=== PATIENT | female | born 1925 | race Caucasian/White ===

== ENCOUNTER 2017-03-26 21:10 | Inpatient (IN) | payer OTHER, MEDICARE ==
[~2017-03-26] VITALS: Ht 168.9 cm; Wt 80.0 kg
[~2017-03-26 21:10] MED LIST: CITRACAL + D M1 EACH PO; COUMADIN5 M2 PO; DIGOXIN125 MCG PO; DILTIAZEM 24HR120 MG PO; FLUOXETINE HCL10 M2 PO; FOLIC ACID1 M1 PO; FUROSEMIDE40 M1 PO; GABAPENTIN300 M2 PO; JANTOVEN2.5 M1 PO; LASIX20 M1 PO; LEVOTHYROXINE50 MCG PO; LIPO-FLAVONOID1 EACH PO; METHOTREXATE2.5 M2 PO; METOPROLOL TAR100 M1 PO; OMEPRAZOLE40 M1 PO; PREDNISONE5 M1 PO; ULTRAM50 M1 PO; VITAMIN B-121000 MC3 PO; VITAMIN D31000 UNI1 PO
--- NOTE | 2017-03-26 21:18 | ED GENERAL ADULT ---
History of Present Illness General Chief Complaint: General Adult Stated Complaint: BIBA EXPOSE TO THE FLU AND HYPERTENSIOM Source: patient, EMS Exam Limitations: no limitations Vital Signs & Intake/Output Vital Signs & Intake/Output Vital Signs Date Time Temp Pulse Resp B/P B/P Pulse O2 O2 Flow FiO2 Mean Ox Delivery Rate 03/263 99.3 03/26 2320 99.3 158 20 148/90 96 Nasal 2.0L Cannula 03/267 101.9 03/265 95 Room Air 03/26 2116 101.9 140 20 152/96 94 Room Air ED Intake and Output 03/27 0000 03/26 1200 Intake Total Output Total Balance Patient 175 lb Weight Weight Reported by Patient Measurement Method Allergies Coded Allergies: ciprofloxacin (From CIPRO) (UNKNOWN 02/21/16) clarithromycin (From BIAXIN) (UNKNOWN - POSSIBLY NAUSEA PER PT DAUGHTER 02/21/16 ) duloxetine (From CYMBALTA) (UNKNOWN 02/21/16) metronidazole (From FLAGYL) (PER PT DAUGHTER - NEUROPATHY 02/21/16) pregabalin (From LYRICA) (UNKNOWN 02/21/16) Reconcile Medications Bioflav,Lemon/Vit Bcomp,C (Lipo-Flavonoid Plus Caplet) (Unknown Strength) TABLET 1 TAB PO DAILY SUPPLEMENT (Reported) Calcium Citrate/Vitamin D3 (Citracal + D Maximum Caplet) (Unknown Strength) TABLET 2 TAB PO DAILY SUPPLEMENT (Reported) Cholecalciferol (Vitamin D3) (Vitamin D3) 1,000 UNIT CAPSULE 1 CAP PO DAILY SUPPLEMENT (Reported) Cyanocobalamin (Vitamin B-12) 1,000 MCG TABLET 1 TAB PO DAILY SUPPLEMENT ( Reported) Digoxin 125 MCG TABLET 1 TAB PO EOD HEART RATE Diltiazem HCl (Diltiazem 24HR ER) 120 MG CAP.ER.24H 1 CAP PO QPM HEART ( Reported) Folic Acid 1 MG TABLET 1 TAB PO DAILY SUPPLEMENT (Reported) Furosemide (Lasix) 20 MG TABLET 1 TAB PO DAILY HEART FAILURE Gabapentin 300 MG CAPSULE 1 CAP PO QPM NEUROPATHY (Reported) Levothyroxine Sodium 50 MCG TABLET 1 TAB PO DAILY THYROID (Reported) Methotrexate 2.5 MG TABLET 3 TAB PO QTHURS ARTHRITIS (Reported) Metoprolol Tartrate 100 MG TABLET 1 TAB PO BID BP (Reported) Omeprazole 40 MG CAPSULE.DR 1 CAP PO DAILY PRN GI (Reported) Prednisone 5 MG TABLET 1 TAB PO DAILY ARTHRITIS (Reported) Tramadol HCl (Ultram) 50 MG TABLET 1 TAB PO QPM PAIN (Reported) Warfarin Sodium (Coumadin) 5 MG TABLET 1 TAB PO EOD BLOOD THINNER (Reported) Warfarin Sodium (Jantoven) 2.5 MG TABLET 1 TAB PO EOD BLOOD THINNER (Reported ) Triage Nurses Notes Reviewed? yes Onset: Gradual Duration: day(s): Timing: recent history Injury Environment: home Severity: moderate Modifying Factors: Improves With: rest. Associated Symptoms: headache HPI: 89 yo woman, h/o tia, presents with headache, cough, fever x 1 day. A family member had the flu with whom she had been in contact. She notes Past History Travel History Traveled to [place] past 21 day No Medical History Any Pertinent Medical History? see below for history Neurological: TIA EENT: NONE Cardiovascular: AFIB, CHF, hypertension, hyperlipidemia Respiratory: NONE Gastrointestinal: NONE Hepatic: NONE Renal: NONE Musculoskeletal: osteoarthritis Psychiatric: NONE Endocrine: NONE Blood Disorders: NONE Cancer(s): NONE PARASITOLOGIST/Reproductive: NONE History of MRSA: No History of VRE: No History of CDIFF: No Pneumonia Vaccine: 11/19/15 Influenza Vaccine: 11/19/15 Surgical History Surgical History: appendectomy, hysterectomy, bowel resection secondary to complicated diverticulitis Psychosocial History What is your primary language Icelandic Family History Hx Contributory? No Review of Systems Review of Systems Constitutional: Reports: no symptoms. EENTM: Reports: no symptoms. Respiratory: Reports: no symptoms. Cardiovascular: Reports: no symptoms. GI: Reports: no symptoms. Genitourinary: Reports: no symptoms. Musculoskeletal: Reports: no symptoms. Skin: Reports: no symptoms. Neurological/Psychological: Reports: no symptoms. Hematologic/Endocrine: Reports: no symptoms. Immunologic/Allergic: Reports: no symptoms. All Other Systems: Reviewed and Negative Physical Exam Physical Exam General Appearance: lethargic Head: atraumatic, normal appearance Eyes: Bilateral: normal appearance. Ears, Nose, Throat: dry mucosa Neck: normal inspection, supple, full range of motion Respiratory: normal breath sounds, chest non-tender, no respiratory distress, quiet respiration, lungs clear Cardiovascular: regular rate/rhythm Gastrointestinal: normal bowel sounds, soft, non-tender, no organomegaly Back: normal inspection, normal range of motion Extremities: normal inspection, normal capillary refill, normal range of motion, no edema Neurologic/Psych: no motor/sensory deficits, awake, alert, oriented x 3 Skin: intact, normal color, warm/dry Core Measures ACS in differential dx? No CVA/TIA Diagnosis: No Sepsis Present: No Sepsis Focused Exam Completed? No Progress Differential Diagnoses I considered the following diagnoses in my evaluation of the patient: influenza, pneumonia, uti vs other.... pt also with afib with RVR Plan of Care: Orders Procedure Date/time Status Nothing by Mouth 03/27 B Active Patient Data 03/26 2332 Active Saline Lock 03/26 2312 Active Misc Message 03/26 2312 Active ED Holding Orders 03/26 2312 Active Admit to inpatient 03/26 2312 Active Vital Signs 03/26 2312 Active Code Status 03/26 2312 Active Add-on Test (ER Only) 03/26 225 Active URINALYSIS 03/26 2233 Complete Add-on Test (ER Only) 03/26 2146 Active PROTHROMBIN TIME 03/26 2130 Complete DIGOXIN 03/26 2130 Complete RAPID VIRAL INFLUENZA A 03/26 2118 Complete TROPONIN LEVEL 03/26 2118 Complete LIPASE 03/26 2118 Complete HEPATIC FUNCTION PANEL 03/26 2118 Complete CBC WITHOUT DIFFERENTIAL 03/26 2118 Complete BASIC METABOLIC PANEL 03/26 2118 Complete AMYLASE 03/26 2118 Complete EKG 03/26 2118 Active Current Medications Sig/Jesusita Start time Last Medication Dose Stop Time Status Admin Diltiazem HCl 125 MG Q8H 03/26 2345 AC 03/26 (Cardizem DRIP) 2356 Dextrose/Water 100 ML (D5W) Laboratory Tests 03/26/172246: Urine Color YEL, Urine Clarity CLEAR, Urine pH 6.0, Ur Specific Stringer 1.020, Urine Protein NEG, Urine Ketones NEG, Urine Nitrite NEG, Urine Bilirubin NEG, Urine Urobilinogen 0.2, Ur Leukocyte Esterase NEG, Ur Microscopic SEDIMENT EXAMINED, Urine RBC RARE, Urine Bacteria RARE H, Urine Hemoglobin SMALL H, Urine Glucose NEG 03/26/172130: Anion Gap 15, Estimated GFR > 60, BUN/Creatinine Ratio 21.3, Glucose 125 H, Calcium 9.5, Total Bilirubin 0.8, Direct Bilirubin 0.3, AST 28, ALT 37, Alkaline Phosphatase 74, Troponin I 0.02, Total Protein 6.8, Albumin 4.6, Amylase 78, Lipase 82, PT 19.7 H, INR 1.89 H, CBC w Diff MAN DIFF ORDERED, RBC 4.42, MCV 98.1, MCH 32.4 H, RDW 14.8 H, MPV 8.1, Gran % 91.0 H, Lymphocytes % 4.5 L, Monocytes % 3.8, Eosinophils % 0.6, Basophils % 0.1, Absolute Granulocytes 11.8 H, Segmented Neutrophils 90 H, Band Neutrophils 4, Absolute Lymphocytes 0.6 L, Lymphocytes 3 L, Monocytes 2, Absolute Monocytes 0.5, Eosinophils 1, Absolute Eosinophils 0.1, Absolute Basophils 0, Nucleated RBCs 1 H, Platelet Estimate ADEQUATE, Anisocytosis 1+, Macrocytic Cells 1+, Stomatocytes 1+, PUBS MCHC 33.0, Digoxin 1.0 Microbiology 03/26 2130 NASOPHARYN: Influenza Virus A & B Rapid Smear - COMP Diagnostic Imaging: Viewed by Me: CT Scan. Discussed w/RAD: CT Scan. Radiology Impression: PATIENT: JENELLE CHRISTIAN PRESENT AGE : 89 PATIENT ACCOUNT NO: [id number] : [birth year] LOCATION: [facility] ORDERING PHYSICIAN: Dipak Del Angel MD SERVICE DATE: 03/26/17 EXAM TYPE: CAT - CT HEAD WO IV CONTRAST EXAMINATION: CT HEAD WITHOUT CONTRAST CLINICAL INFORMATION: Headache with history of TIA. COMPARISON: CT head 02/21/2016. TECHNIQUE: Contiguous axial imaging was performed from the skull base to vertex without intravenous administration of contrast. DLP: 618.75 mGy-cm FINDINGS: Generalized parenchymal atrophy of the brain with proportion dilation of the ventricles, sulci, and basilar cisterns. There are intracranial atherosclerotic calcifications with scattered periventricular and subcortical white matter hypodensity which are nonspecific but most frequently associated with sequela of chronic microvascular ischemia. These changes appear similar to prior examination. There is no evidence of acute intracranial hemorrhage or territorial infarction. No abnormal mass effect or midline shift is seen. Fernández to white matter differentiation is well preserved. No extra-axial fluid collections are identified. The osseous structures and soft tissues are normal. The mastoid air cells and visualized portions of the paranasal sinuses are well aerated. IMPRESSION: No acute intracranial pathology. DICTATED BY: Jeremias Hoyos MD DATE/TIME DICTATED:01/21/18 / 2232 MANAGER LOAN:KB DATE/TIME TRANSCRIBED:03/26/172231 CONFIDENTIAL, DO NOT COPY WITHOUT APPROPRIATE AUTHORIZATION. <Electronically signed in Other Vendor System> SIGNED BY: Jeremias Hoyos MD 03/26/172236 CXR Impression: no acute abnormality, no infiltrates, normal size heart, normal mediastinum, PATIENT: JENELLE CHRISTIAN PRESENT AGE: 89 PATIENT ACCOUNT NO: [id number] : [birth year] LOCATION: [facility] ORDERING PHYSICIAN: Dipak Del Angel MD SERVICE DATE: 03/26/17 EXAM TYPE: RAD - XRY- CHEST XRAY, TWO VIEWS EXAMINATION: XR CHEST CLINICAL INFORMATION: Dyspnea and fever. COMPARISON: Chest radiograph 02/21/2016. TECHNIQUE: 2 AP radiographs of the chest and a single lateral radiograph provided for evaluation. FINDINGS: The lungs are clear. No focal consolidation. No pleural effusion. Stable left-sided dual-lead ICD with lead in the right atrium and right ventricle. Cardiac silhouette is unchanged. There is minimal prominence of pulmonary vasculature. Changes without acute osseous findings IMPRESSION: 1. Mild prominence of the pulmonary vasculature which may be within normal limits given AP technique or minimal volume overload. 2. No focal consolidation or evidence of pneumonia. DICTATED BY: Jeremias Hoyos MD DATE/TIME DICTATED:03/26/172211 MANAGER LOAN:KB DATE/TIME TRANSCRIBED:03/26/172211 CONFIDENTIAL, DO NOT COPY WITHOUT APPROPRIATE AUTHORIZATION. <Electronically signed in Other Vendor System> SIGNED BY: Jeremias Hoyos MD 03/26/172219 Initial ED EKG: afib with rapid ventricular response Departure Departure Disposition: STILL A PATIENT Condition: Stable Clinical Impression Primary Impression: Atrial fibrillation with rapid ventricular response Secondary Impressions: SIRS (systemic inflammatory response syndrome), Viral syndrome Referrals: Mike Vences MD (PCP/Family) Departure Forms: Customer Survey General Discharge Information Admission Note Spoke With: Cyndi Moses MD Documentation of Exam: Documentation of any treatments & extenuating circumstances including Concerns Regarding Discharge (functional status, medication knowledge or non-compliance, living conditions, etc.) that warrant an admission rather than observation: pt with fever, most consistent with viral syndrome... i doubt bacterial process at this time (wbc count benign, u/a neg, cxr neg). pt also with afib with RVR, merits dilt gtt, further management... likely etiology is the fever. INR 1.89 on coumadin... will defer heparin gtt. Critical Care Note Critical Care Note Critical Care Time: 30-74 min Comments: dilt gtt
[2017-03-26 21:52] LABS: ABSOLUTE BASOPHIL COUNT 0 /CUMM (0.0-0.2); ABSOLUTE EOSINOPHIL COUNT 0.1 /CUMM (0.0-0.7); ABSOLUTE GRANULOCYTE CT 11.8 /CUMM (1.4-6.5); ABSOLUTE LYMPH COUNT 0.6 /CUMM (1.2-3.4); ABSOLUTE MONOCYTE COUNT 0.5 /CUMM (0.10-0.60); BASOPHIL % 0.1 % (0.0-2.0); EOSINOPHIL % 0.6 % (0-5); HEMATOCRIT 43.4 % (37-47); MEAN CORPUSCULAR HGB 32.4 PG (27.0-31.0); MEAN CORPUSCULAR VOLUME 98.1 FL (81.0-99.0); MEAN PLATELET VOLUME 8.1 FL (7.4-10.4); PLATELET COUNT 212 /CUMM (130-400); RBC DISTRIBUTION WIDTH 14.8 % (11.5-14.5); RED BLOOD CELL CT 4.42 /CUMM (4.20-5.40)
[2017-03-26 22:07] LABS: PT 19.7 SEC (9.4-12.5)
--- NOTE | 2017-03-26 22:20 | RADIOLOGY REPORT ---
EXAMINATION: XR CHEST CLINICAL INFORMATION: Dyspnea and fever. COMPARISON: Chest radiograph 02/21/2016. TECHNIQUE: 2 AP radiographs of the chest and a single lateral radiograph provided for evaluation. FINDINGS: The lungs are clear. No focal consolidation. No pleural effusion. Stable left-sided dual-lead ICD with lead in the right atrium and right ventricle. Cardiac silhouette is unchanged. There is minimal prominence of pulmonary vasculature. Changes without acute osseous findings IMPRESSION: 1. Mild prominence of the pulmonary vasculature which may be within normal limits given AP technique or minimal volume overload. 2. No focal consolidation or evidence of pneumonia.
--- NOTE | 2017-03-26 22:37 | CT SCAN REPORT ---
EXAMINATION: CT HEAD WITHOUT CONTRAST CLINICAL INFORMATION: Headache with history of TIA. COMPARISON: CT head 02/21/2016. TECHNIQUE: Contiguous axial imaging was performed from the skull base to vertex without intravenous administration of contrast. DLP: 618.75 mGy-cm FINDINGS: Generalized parenchymal atrophy of the brain with proportion dilation of the ventricles, sulci, and basilar cisterns. There are intracranial atherosclerotic calcifications with scattered periventricular and subcortical white matter hypodensity which are nonspecific but most frequently associated with sequela of chronic microvascular ischemia. These changes appear similar to prior examination. There is no evidence of acute intracranial hemorrhage or territorial infarction. No abnormal mass effect or midline shift is seen. Fernández to white matter differentiation is well preserved. No extra-axial fluid collections are identified. The osseous structures and soft tissues are normal. The mastoid air cells and visualized portions of the paranasal sinuses are well aerated. IMPRESSION: No acute intracranial pathology.
--- NOTE | 2017-03-27 00:44 | History & Physical ---
Sonu PABON,Rajeev 03/27/17 0044: General Information and HPI MD Statement: I have seen and personally examined JENELLE CHRISTIAN and documented this H&P. The patient is a 89 year old F who presented with a patient stated chief complaint of [headache and malaise]. Source of Information: patient, family, old records Exam Limitations: dementia, poor historian History of Present Illness: This is an 89-year-old female with past medical history significant for A. fib, demetia, hypothyroidism, RA, CHF, neuropathy, diverticulosis, pacemaker implantation, who was brought in by daughter for altered mental status, malaise, and headache. History is obtained from daughter who is her primary caregiver. Daughter was diagnosed with influenza last Monday. Subsequently, she noted that her mother developed a persistent cough. Daughter noted a continued decline until this weekend when her cough worsened and she gave her tessalon perles and Robitussin this AM. Subsequently, throughout the day she noted her mother more altered, and hypertensive. This evening pt c/o feeling dizzy and about to pass out and it seemed reminescent to her admission in 2015 for TIA so daughter called ambulance. Prior to ambulance arrival daughter notes two episodes of "vomiting" with some spit up. Pt does endorse headache, some nausea , no diarrhea. Daughter endorses frequency of urination but states that pt is incontinent of urine when she coughs. No diarrhea. Pt does c/o myalgias and knee pain. In ED pt was febrile to 101.9. Daughter stated that her mother seemed to feel warm through the week but she never measured a temperature. At baseline pt ambulates with a cane. She follows with Dr. Dominguez for neurology and per daughter was scheduled for some work up of her dementia. Daughter administers medications and states that all meds are administered as prescribed. Allergies/Medications Allergies: Coded Allergies: ciprofloxacin (From CIPRO) (UNKNOWN 02/21/16) clarithromycin (From BIAXIN) (UNKNOWN - POSSIBLY NAUSEA PER PT DAUGHTER 02/21/16 ) duloxetine (From CYMBALTA) (UNKNOWN 02/21/16) metronidazole (From FLAGYL) (PER PT DAUGHTER - NEUROPATHY 02/21/16) pregabalin (From LYRICA) (UNKNOWN 02/21/16) Home Med list Bioflav,Lemon/Vit Bcomp,C (Lipo-Flavonoid Plus Caplet) (Unknown Strength) TABLET 1 TAB PO DAILY SUPPLEMENT (Reported) Calcium Citrate/Vitamin D3 (Citracal + D Maximum Caplet) (Unknown Strength) TABLET 2 TAB PO DAILY SUPPLEMENT (Reported) Cholecalciferol (Vitamin D3) (Vitamin D3) 1,000 UNIT CAPSULE 1 CAP PO DAILY SUPPLEMENT (Reported) Cyanocobalamin (Vitamin B-12) 1,000 MCG TABLET 1 TAB PO DAILY SUPPLEMENT ( Reported) Digoxin 125 MCG TABLET 1 TAB PO EOD HEART RATE Diltiazem HCl (Diltiazem 24HR ER) 120 MG CAP.ER.24H 1 CAP PO QPM HEART ( Reported) Folic Acid 1 MG TABLET 1 TAB PO DAILY SUPPLEMENT (Reported) Furosemide (Lasix) 20 MG TABLET 1 TAB PO DAILY HEART FAILURE Gabapentin 300 MG CAPSULE 1 CAP PO QPM NEUROPATHY (Reported) Levothyroxine Sodium 50 MCG TABLET 1 TAB PO DAILY THYROID (Reported) Methotrexate 2.5 MG TABLET 3 TAB PO QTHURS ARTHRITIS (Reported) Metoprolol Tartrate 100 MG TABLET 1 TAB PO BID BP (Reported) Omeprazole 40 MG CAPSULE.DR 1 CAP PO DAILY PRN GI (Reported) Prednisone 5 MG TABLET 1 TAB PO DAILY ARTHRITIS (Reported) Tramadol HCl (Ultram) 50 MG TABLET 1 TAB PO QPM PAIN (Reported) Warfarin Sodium (Coumadin) 5 MG TABLET 1 TAB PO EOD BLOOD THINNER (Reported) Warfarin Sodium (Jantoven) 2.5 MG TABLET 1 TAB PO EOD BLOOD THINNER (Reported ) Compliance With Home Meds: GOOD Past History Travel History Traveled to [place] past 21 day No Medical History Neurological: TIA EENT: NONE Cardiovascular: AFIB, CHF, hypertension, hyperlipidemia, PACEMAKER Respiratory: NONE Gastrointestinal: NONE Hepatic: NONE Renal: NONE Musculoskeletal: osteoarthritis Psychiatric: NONE Endocrine: NONE Blood Disorders: NONE Cancer(s): NONE REAL ESTATE INVESTMENT ANALYST/Reproductive: NONE History of MRSA: No History of VRE: No History of CDIFF: No Pneumonia Vaccine: 11/19/15 Influenza Vaccine: 11/19/15 Surgical History Surgical History: appendectomy, hysterectomy, bowel resection secondary to complicated diverticulitis Review of Systems Review of Systems Constitutional: Reports: see HPI. Exam & Diagnostic Data Last 24 Hrs of Vital Signs/I&O Vital Signs Date Time Temp Pulse Resp B/P B/P Pulse O2 O2 Flow FiO2 Mean Ox Delivery Rate 03/27 0250 99 Nasal 2.0L Cannula 03/27 0200 98.3 102 20 152/76 99 Nasal 2.0L Cannula 03/27 0058 99.0 96 20 148/67 95 Nasal 2.0L Cannula 03/27 0016 112 20 126/60 96 Nasal 2.0L Cannula 03/27 0015 135 20 141/82 96 Nasal 2.0L Cannula 03/27 0014 99.3 110 20 153/76 03/27 0011 110 20 153/76 95 Nasal 2.0L Cannula 03/26 2323 99.3 03/26 2321 99.3 158 20 148/90 96 Nasal 2.0L Cannula 03/26 2247 101.9 03/26 2135 95 Room Air 03/26 2117 101.9 140 20 152/96 94 Room Air Intake & Output 03/27 0800 03/27 0000 03/26 1600 Intake Total Output Total Balance Patient 79.379 kg Weight Weight Reported by Patient Measurement Method Physical Exam General Appearance Alert, Cooperative, No Acute Distress Skin No Significant Lesion Skin Temp/Moisture Exam: Warm/Dry Sepsis Skin Exam (color): Normal for Ethnicity HEENT Atraumatic, PERRLA, EOMI, membranes dry Neck Supple, No LAD Cardiovascular irregularly irregular. tachycardic Lungs CTAB Abdomen Soft, No Tenderness Extremities No Edema Last 24 Hrs of Labs/Jamar: Laboratory Tests 03/26/172246: Urine Color YEL, Urine Clarity CLEAR, Urine pH 6.0, Ur Specific Holland 1.020, Urine Protein NEG, Urine Ketones NEG, Urine Nitrite NEG, Urine Bilirubin NEG, Urine Urobilinogen 0.2, Ur Leukocyte Esterase NEG, Ur Microscopic SEDIMENT EXAMINED, Urine RBC RARE, Urine Bacteria RARE H, Urine Hemoglobin SMALL H, Urine Glucose NEG 03/26/172130: Anion Gap 15, Estimated GFR > 60, BUN/Creatinine Ratio 21.3, Glucose 125 H, Calcium 9.5, Total Bilirubin 0.8, Direct Bilirubin 0.3, AST 28, ALT 37, Alkaline Phosphatase 74, Troponin I 0.02, Total Protein 6.8, Albumin 4.6, Amylase 78, Lipase 82, TSH 0.763, Free T4 1.19, PT 19.7 H, INR 1.89 H, CBC w Diff MAN DIFF ORDERED, RBC 4.42, MCV 98.1, MCH 32.4 H, RDW 14.8 H, MPV 8.1, Gran % 91.0 H, Lymphocytes % 4.5 L, Monocytes % 3.8, Eosinophils % 0.6, Basophils % 0.1, Absolute Granulocytes 11.8 H, Segmented Neutrophils 90 H, Band Neutrophils 4, Absolute Lymphocytes 0.6 L, Lymphocytes 3 L, Monocytes 2, Absolute Monocytes 0.5, Eosinophils 1, Absolute Eosinophils 0.1, Absolute Basophils 0, Nucleated RBCs 1 H, Platelet Estimate ADEQUATE, Anisocytosis 1+, Macrocytic Cells 1+, Stomatocytes 1+, PUBS MCHC 33.0, Digoxin 1.0 Microbiology 03/26 2130 NASOPHARYN: Influenza Virus A & B Rapid Smear - COMP Assessment/Plan Assessment: ASSESSMENT: This is a 89-year-old female with past medical history significant for A. fib, demetia, hypothyroidism, RA, CHF, neuropathy, diverticulosis, pacemaker implantation, who was brought in by daughter for altered mental status , malaise, and headache. She is found to be febrile and in atrial fibrillation with rapid ventricular response. Given her recent sick contact diagnosed with influenza, and patient's complaints of fever, myalgia and cough there is concern for influenza in this patient despite a negative flu swab. Likely a combination of viral illness in addition to her Robitussin precipitated an episode of RVR. PLAN: SIRS+: Patient certainly meets criteria for SIRS given fever, leukocytosis, and tachycardia. Though she tested negative for influenza, still suspect she has disease given sick contact, her immunocompromised state on MTX, the duration of her illness and symptoms. Questionable sepsis 2/2 influenza. CXR w/o consolidation. Negative UA. CT head negative given concern for her AMS. Pt is on chronic prednisone 5mg daily, unsure how it may influence her leukocytosis. * Bcx * Ucx * LRC * Tamiflu * Monitor lactic acid * IVF * Holding home lasix. * Trend leukocytosis Afib RVR: HR 158. Pt is on dig and Diltiazem 120 at home. She has hx of hypothyroid. * Check TFT * Check Dig lvl * Con't Digoxin (dosed EOD) * Cardizem drip * Will give home dose of PO Diltiazem and attempt to wean down drip * Cardiology Consult * Con't Coumadin * Monitor INR * Trops/ekg RA: Pt c/o severe knee pain bilat. Could be RA, or myalgias but would rule out septic knee in pt with leukocytosis and fever. * Knee xrys * She gets 3 tab of MTX on . * Con't folic acid * Con't prednisone 5mg * Holding gabapentin for AMS. Consider re-starting in AM. Hypothyroid: * Con't Levothyroxine * Check TFT FC Reg diet Chem ppx As Ranked By This Provider Problem List: 1. Viral syndrome 2. SIRS (systemic inflammatory response syndrome) 3. Atrial fibrillation with rapid ventricular response Core Measures/Misc (11/20) Acute Coronary Syndrome ACS Diagnosis: No Congestive Heart Failure Congestive Heart Failure Diagnosis No Cerebrovascular Accident CVA/TIA Diagnosis: No VTE (View Protocol) VTE Risk Factors Age>40 No Mechanical VTE Prophylaxis d/t N/A MechProphylax Ordered No VTE Pharm Prophylaxis d/t NA PharmProphylax ordered Sepsis (View protocol) Sepsis Present: Yes Cyndi Moses 03/27/17 0549: Attending MD Review Statement Attending Statement Attending MD Statement: examined this patient, discuss w/resident/PA/APPLICATIONS SALES REPRESENTATIVE, agreed w/resident/PA/APPLICATIONS SALES REPRESENTATIVE, reviewed EMR data (avail), reviewed images, amended to note Attending Assessment/Plan: CC: Flulike symptoms PMH: A. fib, S/P pacemaker, hypothyroidism, rheumatoid arthritis, heart failure, neuropathy Patient is a poor historian, brought in ER through EMS. History was obtained from patient's daughter who suggested that since last 1 week patient has been more lethargic, having fever and flulike symptoms at home but today she appeared more DC having headache, not being herself. Her daughter was worried about the strokelike symptoms so she came to ER. Upon arrival in ER patient was found to have heart rate of 144 with A. fib. Fever of 109, blood pressure stable, saturating 96% on 2 L. Oriented 1, complains of myalgias, knee pain. Decreased air entry bilaterally, wheezing present, no leg edema, no JVD. Patient on to have significant leukocytosis, troponin negative chest x-ray questionable for volume overload no evidence of pneumonia. Even her symptoms, immunocompromised state and her daughter having flu, we will continue her on Tamiflu empirically even though her rapid influenza negative. A. fib is precipitated by viral infection, continue Cardizem drip, continue home doses of warfarin + Suspected influenza + A. fib with RVR + History of A. fib, S/P pacemaker, hypothyroidism, rheumatoid arthritis, heart failure, neuropathy - Admit to telemetry - Serial troponin and EKGs - Trend lactate - Continue Cardizem drip - Continue Tamiflu empirically - Cardiology consult in a.m. - Gentle hydration for normal saline for 1 L - Continue rest of her home medications - significant knee pain, tender to touch, no redness or effusion or inflammation : Bilateral knee x-rays
[2017-03-27 02:00] VITALS: BP 152/76
--- NOTE | 2017-03-27 05:51 | Admission Certification ---
Admission Certification Certification Statement - As attending physician, I certify that at the time of - admission, based on clinical presentation, severity of - symptoms, need for further diagnostic testing and - therapeutic interventions, and risk of adverse outcomes - without in-hospital treatment, in my clinical assessment, - this patient requires an acute hospital stay for a minimum - of two nights or longer. I have also considered psychsocial - factors such as support system, advanced age, financial - issues, cognitive issues, and failed out-patient treatments, - past re-admission history, safety of patient, and lack of - compliance as applicable. Specific rationale supporting this admission is: A. fib with RVR, suspected influenza
[2017-03-27 06:00] VITALS: BP 148/70
[2017-03-27 07:14] VITALS: BP 152/76
[2017-03-27 08:16] LABS: PT 19.2 SEC (9.4-12.5)
[2017-03-27 08:25] LABS: ABSOLUTE BASOPHIL COUNT 0 /CUMM (0.0-0.2); ABSOLUTE EOSINOPHIL COUNT 0 /CUMM (0.0-0.7); ABSOLUTE GRANULOCYTE CT 11.1 /CUMM (1.4-6.5); ABSOLUTE LYMPH COUNT 0.6 /CUMM (1.2-3.4); ABSOLUTE MONOCYTE COUNT 0.9 /CUMM (0.10-0.60); BASOPHIL % 0 % (0.0-2.0); EOSINOPHIL % 0.3 % (0-5); HEMATOCRIT 39.8 % (37-47); MEAN CORPUSCULAR HGB 33.2 PG (27.0-31.0); MEAN CORPUSCULAR VOLUME 97.5 FL (81.0-99.0); MEAN PLATELET VOLUME 8.5 FL (7.4-10.4); PLATELET COUNT 170 /CUMM (130-400); RBC DISTRIBUTION WIDTH 14.8 % (11.5-14.5); RED BLOOD CELL CT 4.09 /CUMM (4.20-5.40); WHITE BLOOD CELL COUNT 12.6 /CUMM (4.8-10.8)
--- NOTE | 2017-03-27 09:50 | Event Note ---
Event Note Event Note: 89 yo F with pmh of HFpEF, NOCAD, PAF on Coumadin, PPM, hypothyroidism, CVA, neuropathy, diverticulosis, was admitted with complaints of fever, nausea, cough , and was found to have atrial fibrillation with rapid ventricular response. She is currently admitted in the telemetry unit for further monitoring of her heart rate and is currently on IV Cardizem drip at 15mg/hr, she received small dose (5 mg) of beta mayra yesterday, and her digoxin level is therapeutic at 1. * Continue monitoring in telemetry, for rate and rhythm * Cardiology was consulted, awaiting recommendations * In the meantime, continue with IV Cardizem drip, will try to titrate it down according to response with heart rate and blood pressure * Will follow cardiology's recs regarding resuming metoprolol at home doses * Destruction is currently in therapeutic level, and has been ordered for every other day, restarting tomorrow. * We are repeating the rapid flu test again, with strong suspicion of influenza, and continuing Tamiflu for the time being * We'll also follow-up on the bilateral knee x-ray that has been ordered, as she was still complaining of b/l knee pain, no h/o falls though
--- NOTE | 2017-03-27 12:45 | Cons- Cardiology ---
General Information and HPI Consulting Request Date of Consult: 03/27/17 Requested By: Estela Nunez MD Reason for Consult: Atrial fibrillation Source of Information: patient, family, old records History of Present Illness: This is an 89-year-old female with a past medical history of now persistent atrial fibrillation on Coumadin, heart failure with preserved ejection fraction, permanent pacemaker, dementia, prior CVA, and hypothyroidism who presented to the hospital with cough along with decreased mental status and worsening fatigue. Patient is a somewhat limited historian and some of the HPI was obtained from her family and the medical record. Apparently her daughter was recently diagnosed with influenza. Patient was complaining of some headache without complaints of obvious chest pain or palpitations. She was complaining of myalgias including significant knee pain. She was noted to be febrile. She was also found to be tachycardic and initiated on intravenous Cardizem. No reported bleeding episodes. Allergies/Medications Allergies: Coded Allergies: ciprofloxacin (From CIPRO) (UNKNOWN 02/21/16) clarithromycin (From BIAXIN) (UNKNOWN - POSSIBLY NAUSEA PER PT DAUGHTER 02/21/16 ) duloxetine (From CYMBALTA) (UNKNOWN 02/21/16) metronidazole (From FLAGYL) (PER PT DAUGHTER - NEUROPATHY 02/21/16) pregabalin (From LYRICA) (UNKNOWN 02/21/16) Home Med List: Bioflav,Lemon/Vit Bcomp,C (Lipo-Flavonoid Plus Caplet) (Unknown Strength) TABLET 1 TAB PO DAILY SUPPLEMENT (Reported) Calcium Citrate/Vitamin D3 (Citracal + D Maximum Caplet) (Unknown Strength) TABLET 2 TAB PO DAILY SUPPLEMENT (Reported) Cholecalciferol (Vitamin D3) (Vitamin D3) 1,000 UNIT CAPSULE 1 CAP PO DAILY SUPPLEMENT (Reported) Cyanocobalamin (Vitamin B-12) 1,000 MCG TABLET 1 TAB PO DAILY SUPPLEMENT ( Reported) Digoxin 125 MCG TABLET 1 TAB PO EOD HEART RATE Diltiazem HCl (Diltiazem 24HR ER) 120 MG CAP.ER.24H 1 CAP PO QPM HEART ( Reported) Folic Acid 1 MG TABLET 1 TAB PO DAILY SUPPLEMENT (Reported) Furosemide (Lasix) 20 MG TABLET 1 TAB PO DAILY HEART FAILURE Gabapentin 300 MG CAPSULE 1 CAP PO QPM NEUROPATHY (Reported) Levothyroxine Sodium 50 MCG TABLET 1 TAB PO DAILY THYROID (Reported) Methotrexate 2.5 MG TABLET 3 TAB PO QTHURS ARTHRITIS (Reported) Metoprolol Tartrate 100 MG TABLET 1 TAB PO BID BP (Reported) Omeprazole 40 MG CAPSULE.DR 1 CAP PO DAILY PRN GI (Reported) Prednisone 5 MG TABLET 1 TAB PO DAILY ARTHRITIS (Reported) Tramadol HCl (Ultram) 50 MG TABLET 1 TAB PO QPM PAIN (Reported) Warfarin Sodium (Coumadin) 5 MG TABLET 1 TAB PO EOD BLOOD THINNER (Reported) Warfarin Sodium (Jantoven) 2.5 MG TABLET 1 TAB PO EOD BLOOD THINNER (Reported ) Current Medications: Current Medications Sig/Jesusita Start time Last Medication Dose Route Stop Time Status Admin Acetaminophen 650 MG Q6P PRN 03/27 0200 AC PO Acetaminophen 1,000 MG ONCE ONE 03/26 2245 DC 03/26 N/A 1 UNIT IV 03/26 2259 2247 Acetaminophen 0 .STK-MED ONE 03/26 2238 DC IV Digoxin 0.125 MG TuThSa@1700 03/28 1700 AC PO Diltiazem HCl 120 MG QPM 03/27 2200 CAN PO Diltiazem HCl 30 MG STAT STA 03/26 2354 DC PO 03/26 2355 Diltiazem HCl 125 MG Q8H 03/26 2345 AC 03/27 Dextrose/Water 100 ML IV 0847 Diltiazem HCl 125 MG Q12H 03/26 2300 DC 03/26 Sodium Chloride 100 ML IV 2322 Gabapentin 300 MG QPM 03/27 2200 AC PO Ibuprofen 600 MG Q6P PRN 03/27 0200 AC PO Levothyroxine Sodium 0.05 MG DAILY AC 03/27 0700 AC 03/27 PO 0624 Metoprolol Tartrate 0 .STK-MED ONE 03/27 0003 DC IV Metoprolol Tartrate 5 MG ONCE ONE 03/26 2345 DC 03/27 IV 03/26 2346 0014 Morphine Sulfate 2 MG Q4P PRN 03/27 0200 AC IV Omeprazole 40 MG DAILY AC 03/27 0700 AC 03/27 PO 0624 Oseltamivir Phosphate 75 MG BID 03/27 0245 AC 03/27 PO 03/31 0244 1123 Potassium Chloride 40 MEQ ONCE ONE 03/27 1130 DC 03/27 PO 03/27 1131 1128 Prednisone 5 MG DAILY 03/27 1000 AC 03/27 PO 1123 Sodium Chloride 1,000 ML Q13H 03/27 0215 AC 03/27 IV 03/27 1514 0300 Warfarin Sodium 5 MG COUMADIN 1700 ONE 03/27 1700 AC PO 03/27 1701 Warfarin Sodium 2.5 MG ONCE ONE 03/27 0245 DC 03/27 PO 03/27 0246 0402 Review of Systems Review of Systems: Somewhat limited as the patient is a limited historian. 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 Home Services at Home: Home Health Aide Smoking Status: Never Smoked Exam & Diagnostic Data Vital Signs and I&O Vital Signs Date Time Temp Pulse Resp B/P B/P Pulse O2 O2 Flow FiO2 Mean Ox Delivery Rate 03/27 0800 Nasal 2.0L Cannula 03/27 0714 98.3 102 20 152/76 94 03/27 0600 98.5 106 20 148/70 94 Nasal Cannula 03/27 0250 99 Nasal 2.0L Cannula 03/27 0200 98.3 102 20 152/76 99 Nasal 2.0L Cannula 03/27 0058 99.0 96 20 148/67 95 Nasal 2.0L Cannula 03/27 0016 112 20 126/60 96 Nasal 2.0L Cannula 03/27 0015 135 20 141/82 96 Nasal 2.0L Cannula 03/27 0014 99.3 110 20 153/76 03/27 0011 110 20 153/76 95 Nasal 2.0L Cannula 03/26 2323 99.3 03/26 232 99.3 158 20 148/90 96 Nasal 2.0L Cannula 03/267 101.9 03/265 95 Room Air 03/26 2116 101.9 140 20 152/96 94 Room Air Intake & Output 03/27 1600 03/27 0800 03/27 0000 03/26 1600 03/26 0800 03/26 0000 Intake Total 320 Output Total Balance 320 Intake, IV 300 Intake, Oral 20 Patient 175 lb Weight Weight Reported by Patient Measurement Method Physical Exam: General: no apparent distress. Eyes: No obvious scleral icterus. HEENT: No jugular venous distention or abnormal jugular venous pulsations. Cardiovascular: Normal intensity S1/S2. Irregular , pacemaker noted Respiratory: No rales or rhonchi Abdomen: Soft, nontender with no guarding or rebound tenderness. Musculoskeletal: No clubbing or cyanosis noted; trace lower extremity edema Skin: Warm Neurologic: No gross focal deficits noted. Lymph: No gross lymphadenopathy. Labs/Jamar Results: Laboratory Tests 03/27 03/27 03/27 0736 0615 0615 Chemistry Sodium (137 - 145 mmol/L) 141 Cancelled Potassium (3.5 - 5.1 mmol/L) 3.4 L Cancelled Chloride (98 - 107 mmol/L) 99 Cancelled Carbon Dioxide (22 - 30 mmol/L) 26 Cancelled Anion Gap (5 - 16) 16 Cancelled BUN (7 - 17 mg/dL) 15 Cancelled Creatinine (0.5 - 1.0 mg/dL) 0.8 Cancelled Estimated GFR (>60 ml/min) > 60 BUN/Creatinine Ratio (7 - 25 %) 18.8 Cancelled Lactic Acid (0.7 - 2.1 mmol/L) 2.7 H Magnesium (1.6 - 2.3 mg/dL) 1.3 L Troponin I (< 0.11 ng/ml) 0.05 Coagulation PT (9.4 - 12.5 SEC) 19.2 H INR (0.90 - 1.19) 1.84 H Hematology CBC w Diff MAN DIFF ORDERED WBC (4.8 - 10.8 /CUMM) 12.6 H RBC (4.20 - 5.40 /CUMM) 4.09 L Hgb (12.0 - 16.0 G/DL) 13.6 Hct (37 - 47 %) 39.8 MCV (81.0 - 99.0 FL) 97.5 MCH (27.0 - 31.0 PG) 33.2 H RDW (11.5 - 14.5 %) 14.8 H Plt Count (130 - 400 /CUMM) 170 MPV (7.4 - 10.4 FL) 8.5 Gran % (42.2 - 75.2 %) 88.0 H Lymphocytes % (20.5 - 51.1 %) 4.4 L Monocytes % (1.7 - 9.3 %) 7.3 Eosinophils % (0 - 5 %) 0.3 Basophils % (0.0 - 2.0 %) 0 Absolute Granulocytes (1.4 - 6.5 /CUMM) 11.1 H Absolute Lymphocytes (1.2 - 3.4 /CUMM) 0.6 L Absolute Monocytes (0.10 - 0.60 /CUMM) 0.9 H Absolute Eosinophils (0.0 - 0.7 /CUMM) 0 Absolute Basophils (0.0 - 0.2 /CUMM) 0 Platelet Estimate (ADEQUATE) VERIFIED BY SMEAR Polychromasia 1+ Anisocytosis 1+ Stomatocytes 1+ PUBS MCHC (33.0 - 37.0 G/DL) 34.0 03/27 03/26 0515 2247 Chemistry Troponin I (< 0.11 ng/ml) 0.04 Urines Urine Color (YEL,AMB,STR) YEL Urine Clarity (CLEAR) CLEAR Urine pH (5.0 - 8.0) 6.0 Ur Specific [place] (1.001 - 1.035) 1.020 Urine Protein (NEG,<30 MG/DL) NEG Urine Ketones (NEG) NEG Urine Nitrite (NEG) NEG Urine Bilirubin (NEG) NEG Urine Urobilinogen (0.1 - 1.0 EU/dl) 0.2 Ur Leukocyte Esterase (NEG) NEG Ur Microscopic SEDIMENT EXAMINED Urine RBC (0 - 5 /HPF) RARE Urine Bacteria (NEG/NONE) RARE H Urine Hemoglobin (NEG) SMALL H Urine Glucose (N MG/DL) NEG 03/26 2131 Chemistry Sodium (137 - 145 mmol/L) 141 Potassium (3.5 - 5.1 mmol/L) 3.6 Chloride (98 - 107 mmol/L) 100 Carbon Dioxide (22 - 30 mmol/L) 26 Anion Gap (5 - 16) 15 BUN (7 - 17 mg/dL) 17 Creatinine (0.5 - 1.0 mg/dL) 0.8 Estimated GFR (>60 ml/min) > 60 BUN/Creatinine Ratio (7 - 25 %) 21.3 Glucose (65 - 99 mg/dL) 125 H Calcium (8.4 - 10.2 mg/dL) 9.5 Total Bilirubin (0.2 - 1.3 mg/dL) 0.8 Direct Bilirubin (< 0.4 mg/dL) 0.3 AST (14 - 36 U/L) 28 ALT (9 - 52 U/L) 37 Alkaline Phosphatase (<127 U/L) 74 Troponin I (< 0.11 ng/ml) 0.02 Total Protein (6.3 - 8.2 g/dL) 6.8 Albumin (3.5 - 5.0 g/dL) 4.6 Amylase (30 - 110 U/L) 78 Lipase (23 - 300 U/L) 82 TSH (0.270 - 4.200 uIU/mL) 0.763 Free T4 (0.85 - 1.93 ng/dL) 1.19 Coagulation PT (9.4 - 12.5 SEC) 19.7 H INR (0.90 - 1.19) 1.89 H Hematology CBC w Diff MAN DIFF ORDERED WBC (4.8 - 10.8 /CUMM) 13.0 H RBC (4.20 - 5.40 /CUMM) 4.42 Hgb (12.0 - 16.0 G/DL) 14.3 Hct (37 - 47 %) 43.4 MCV (81.0 - 99.0 FL) 98.1 MCH (27.0 - 31.0 PG) 32.4 H RDW (11.5 - 14.5 %) 14.8 H Plt Count (130 - 400 /CUMM) 212 MPV (7.4 - 10.4 FL) 8.1 Gran % (42.2 - 75.2 %) 91.0 H Lymphocytes % (20.5 - 51.1 %) 4.5 L Monocytes % (1.7 - 9.3 %) 3.8 Eosinophils % (0 - 5 %) 0.6 Basophils % (0.0 - 2.0 %) 0.1 Absolute Granulocytes (1.4 - 6.5 /CUMM) 11.8 H Segmented Neutrophils (42.2 - 75.2 %) 90 H Band Neutrophils (0.0 - 5.0 %) 4 Absolute Lymphocytes (1.2 - 3.4 /CUMM) 0.6 L Lymphocytes (20.5 - 51.1 %) 3 L Monocytes (1.7 - 9.3 %) 2 Absolute Monocytes (0.10 - 0.60 /CUMM) 0.5 Eosinophils (0 - 5.0 %) 1 Absolute Eosinophils (0.0 - 0.7 /CUMM) 0.1 Absolute Basophils (0.0 - 0.2 /CUMM) 0 Nucleated RBCs (0.0 - 0.0 /100WBC) 1 H Platelet Estimate (ADEQUATE) ADEQUATE Anisocytosis 1+ Macrocytic Cells 1+ Stomatocytes 1+ PUBS MCHC (33.0 - 37.0 G/DL) 33.0 Serology Virus Culture Pending Toxicology Digoxin (0.8 - 2.0 ng/mL) 1.0 Diagnostic Data EKG Results tracing was personally reviewed and shows atrial fibrillation at 103 beats per minute with nonspecific ST-T abnormalities CXR Results 1. Mild prominence of the pulmonary vasculature which may be within normal limits given AP technique or minimal volume overload. 2. No focal consolidation or evidence of pneumonia. Other Results Telemetry tracings were personally reviewed showed atrial fibrillation with rapid ventricular response rate Head CT: IMPRESSION: No acute intracranial pathology. Assessment/Plan Assessment/Plan 1. Fever with likely viral bronchitis with concern for influenza despite negative swabs 2. Persistent atrial fibrillation on Coumadin 3. Tachycardia 4. history of heart failure with preserved ejection fraction; compensated 5. PPM in situ 6. history of dementia 7. History of prior CVA 8. hypertension 9. myalgias/knee pain The patient presents with evidence of a viral illness and agree with empiric treatment of influenza despite the negative swabs. I suspect that her discomfort and viral illness are likely driving some of her tachycardia; would resume her outpatient AV jame regimen and wean off the Cardizem drip if possible; Can use additional p.r.n. doses of IV metoprolol if needed but would allow for some permissive tachycardia in the setting of her acute illness. Continue on Coumadin with a target INR 2.0-3.0. No evidence of acute volume overload; reasonable to hold her diuretic regimen while she is febrile while monitoring her fluid status. Would obtain a transthoracic echocardiogram to assess for any evidence of tachycardia induced cardiomyopathy as she has not had any recent study. Ronnie Alatorre MD [facility] Consult Acknowledgment - Thank you for your consult request.
--- NOTE | 2017-03-27 14:06 | PN- Att Addend ---
Attending Addendum Attending Brief Note Patient seen and examined. Resting comfortably and not in any acute distress. Son present at the bedside. No new complaints this morning. Vital Signs Date Time Temp Pulse Resp B/P B/P Pulse O2 O2 Flow FiO2 Mean Ox Delivery Rate 03/27 0800 Nasal 2.0L Cannula 03/27 0714 98.3 102 20 152/76 94 03/27 0600 98.5 106 20 148/70 94 Nasal Cannula 03/27 0250 99 Nasal 2.0L Cannula 03/27 0200 98.3 102 20 152/76 99 Nasal 2.0L Cannula 03/27 0058 99.0 96 20 148/67 95 Nasal 2.0L Cannula 03/27 0016 112 20 126/60 96 Nasal 2.0L Cannula 03/27 0015 135 20 141/82 96 Nasal 2.0L Cannula 03/27 0014 99.3 110 20 153/76 03/27 0011 110 20 153/76 95 Nasal 2.0L Cannula 03/26 2323 99.3 03/26 2321 99.3 158 20 148/90 96 Nasal 2.0L Cannula 03/26 2247 101.9 03/26 2135 95 Room Air 03/26 2116 101.9 140 20 152/96 94 Room Air General appearance: Not in acute distress Heart: S1-S2 irregular Lungs: Clear bilaterally Abdomen: Soft and nontender Extremities: No pedal edema Skin: Intact Problems: 1. Atrial fibrillation with rapid ventricular response. 2. Acute bronchitis; likely viral in etiology. Plan: -Titrate off Cardizem infusion and resume oral Cardizem. Follow-up recommendations of the cardiology service. -Continue anticoagulant therapy. -Rapid flu test is negative 2. She does have family history of influenza infection. She has been started empirically on Tamiflu. -Follow blood and urine cultures to rule out other infectious etiology of her fever. -Mobilize patient as tolerated. -Son reports that patient has chronic degenerative joint disease of the knees. 10 years ago her orthopedic surgeon had recommended surgery. Due to several social issues surgery Being Postponed. Now Her Surgeons Have Said That Her Bones Acute Disease to Safely Undergo Surgery. We Will Continue Medical Management. Discontinue morphine in this elderly patient. Pain control with Tylenol. Please resume her tramadol 50 mg at bedtime which she takes at home. Continue gabapentin. -Resume her diuretic therapy with Lasix.
--- NOTE | 2017-03-27 14:18 | RADIOLOGY REPORT ---
EXAMINATION: CR RIGHT KNEE. CR LEFT KNEE. CLINICAL INFORMATION: Rule out infection of knee. Severe pain. COMPARISON: Left knee films dated 09/19/2013. TECHNIQUE: 4 views of the right knee. 4 views of the left knee. FINDINGS: Bilateral knees: There is mild narrowing of the medial femoral and patellofemoral compartments with associated spurring and cystic changes, consistent with osteoarthritis. Relative widening of the lateral femoral compartment is seen and subtle chondrocalcinosis is noted in the lateral femoral compartment. There is also spurring of the lateral femoral condyle. Bilaterally, spurring of the tibial spines is noted. There may be a trace effusion in the left suprapatellar bursa. On the right side, suprapatellar bursa is poorly evaluated due to obliquity of the film. No acute fracture or dislocation is noted. Osteopenia is suggested. IMPRESSION: 1. Osteopenia. No acute fracture or dislocation of the right or left knee. 2. Moderate degenerative changes in both knee joints, involving primarily the medial femoral and patellofemoral compartments. 3. Chondrocalcinosis in the lateral femoral compartment.
[2017-03-27 14:35] VITALS: BP 146/76
--- NOTE | 2017-03-28 07:20 | PN- Housestaff ---
James PABON,Laci 03/28/17 0719: Subjective Follow-up For: Atrial fibrillation; Flulike symptoms Complaints: persistent flu-like symptoms Tele-Events Since Last Visit: Atrial fibrillation, heart rate ranging from 65-75. Subjective: I followed up and examined the patient today. She is resting comfortably in bed , with no complaints. IV Cardizem drip has now been tapered off, from 15 MG per hour overnight. Vitals signs stable. She still has mild flu-like symptoms. No nursing issues reported either. Review of Systems Constitutional: Reports: see HPI. Objective Last 24 Hrs of Vital Signs/I&O Vital Signs Date Time Temp Pulse Resp B/P B/P Pulse O2 O2 Flow FiO2 Mean Ox Delivery Rate 03/28 0400 Nasal 2.0L Cannula 03/28 0000 Nasal 2.0L Cannula 03/27 2016 92 130/64 03/27 1628 Nasal 2.0L Cannula 03/27 1518 99.0 92 03/27 1502 99.0 03/27 1435 100.6 106 20 146/76 93 Nasal 2.0L Cannula 03/27 1403 100.6 03/27 0800 Nasal 2.0L Cannula Intake & Output 03/28 0800 03/28 0000 03/27 1600 Intake Total 100 465 840 Output Total 0 300 Balance 100 165 840 Intake, IV 0 195 720 Intake, Oral 100 270 120 Number 0 Bowel Movements Output, Urine 0 300 Physical Exam General Appearance: Alert, Oriented X3, Cooperative, No Acute Distress, overweight Skin: No Rashes, No Breakdown HEENT: Atraumatic, PERRLA, EOMI, Mucous Membr. moist/pink Lymphatic: Cervical nl Cardiovascular: Regular Rate, Normal S1, Normal S2, irregular pulse Lungs: Clear to Auscultation, Normal Air Movement Abdomen: Normal Bowel Sounds, Soft, No Tenderness Neurological: grossly intact Extremities: trace edema b/l (chronic) Vascular: Normal Pulses Current Medications: Current Medications Sig/Jesusita Start time Last Medication Dose Route Stop Time Status Admin Acetaminophen 1,000 MG Q6P PRN 03/27 1630 AC N/A 1 UNIT IV Acetaminophen 650 MG Q6P PRN 03/27 0200 AC 03/28 PO 0646 Digoxin 0.125 MG TuThSa@1700 03/28 1700 AC PO Diltiazem HCl 120 MG QPM 03/27 2200 CAN PO Diltiazem HCl 25 MG .STK-MED ONE 03/27 1625 DC IV 03/27 1626 Diltiazem HCl 25 MG .STK-MED ONE 03/27 0843 DC IV 03/27 0844 Diltiazem HCl 125 MG Q8H 03/26 2345 DC 03/28 Dextrose/Water 100 ML IV 0444 Furosemide 20 MG DAILY 03/28 1000 AC PO Gabapentin 300 MG QPM 03/27 2200 AC 03/27 PO 2017 Ibuprofen 600 MG Q6P PRN 03/27 0200 DC PO Levothyroxine Sodium 0.05 MG DAILY AC 03/27 0700 AC 03/28 PO 0647 Metoprolol Tartrate 100 MG BID 03/27 2200 AC 03/27 PO 2016 Morphine Sulfate 2 MG Q4P PRN 03/27 0200 DC IV Omeprazole 40 MG DAILY AC 03/27 0700 AC 03/28 PO 0647 Ondansetron HCl 4 MG ONCE ONE 03/27 2014 DC 03/27 PO 03/27 Oseltamivir Phosphate 75 MG BID 03/27 0245 AC 03/27 PO 03/31 0244 2017 Potassium Chloride 40 MEQ ONCE ONE 03/27 1130 DC 03/27 PO 03/27 1131 1128 Prednisone 5 MG DAILY 03/27 1000 AC 03/27 PO 1123 Sodium Chloride 1,000 ML Q13H 03/27 0215 DC 03/27 IV 03/27 1514 0300 Tramadol HCl 50 MG QPM 03/27 2200 AC 03/27 PO 2017 Warfarin Sodium 5 MG COUMADIN 1700 ONE 03/27 1700 DC 03/27 PO 03/27 1701 1629 Last 24 Hrs of Lab/Jamar Results Last 24 Hrs of Labs/Mics: Microbiology 03/27 1011 NASOPHARYN: Influenza Virus A & B Rapid Smear - COMP Assessment/Plan Assessment: 89 yo F with pmh of HFpEF, NOCAD, PAF on Coumadin, PPM, hypothyroidism, CVA, neuropathy, diverticulosis, was admitted with complaints of fever, nausea, cough , and was found to have atrial fibrillation with rapid ventricular response. She is currently admitted in the telemetry unit for further monitoring of her heart rate. Her beta mayra was started yesterday evening, and Cardizem drip was tapered down to change it into long-acting Cardizem 120 mg daily. She also takes digoxin every other day, which has been resumed. * Continue monitoring in telemetry, for rate and rhythm * Cardiology recommendations appreciated * Continue PO Cardizem CD 120 mg daily, metoprolol 100 mg BID, digoxin EOD. * Continuing Tamiflu * Coumadin dosing for INR 2-3, gave 7.5 today #Diet: Heart healthy diet #DVT ppx: Coumadin #Code status: Full code Problem List: 1. Atrial fibrillation Pain Ratin Pain Location: - Pain Goal: Pain 4 or less Pain Plan: prn Tomorrow's Labs & Rationales: BOYD Nunez MD,Hernanmelaniecarlos 03/28/17 1220: Attending MD Review Statement Attending Statement Attending MD Statement: examined this patient, discuss w/resident/PA/[employer], agreed w/resident/PA/[employer] F[employer], discussed with family, reviewed EMR data (avail), discussed with nursing, discussed with case mgmt, amended to note Attending Assessment/Plan: Patient seen and examined. Very pleasant not in acute distress. Mildly confused. Complaining of dizziness. Daughter reports that this does happen with the patient on occasion and she takes meclizine as needed. She had no events overnight on telemetry monitoring. Patient denies chest pain or shortness of breath. Denies palpitations. She had no orthostatic blood pressure changes this morning. Recommendations: -Patient remains in atrial flutter patient however with ontrolled ventricular response. -Cardiology service recommended increasing dose of Lasix today. Recommend strict monitoring of input output and daily weights. -Repeat serum chemistry in a.m. -Patient is afebrile so far today a white cell count is trending downwards. Follow blood culture results. Complete empiric therapy for influenza with Tamiflu. -Daughter reports that patient gets dizziness on occasion and takes and takes meclizine as needed. Patient has no orthostatic blood pressure changes this morning. Recommend restarting patient on her meclizine today and monitor for improvement of her dizziness. - Mobilize patient today in anticipation of possible discharge tomorrow if blood cultures returned negative and patient remains afebrile. - cultures returned negative and patient remains afebrile. -
[2017-03-28 07:39] VITALS: BP 92/60
[2017-03-28 09:43] VITALS: BP 126/74
[2017-03-28 09:50] LABS: PT 13.6 SEC (9.4-12.5)
--- NOTE | 2017-03-28 10:17 | PN- Cardiology ---
Subjective Subjective: Patient remains confused. She states that she sat up this morning for the first time and experienced dizziness. She denies chest pain or shortness of breath. Review of Systems: Eyes no blurred or double vision Ears no deafness or ringing Nose and throat no recurrent sinusitis Lungs per history of present illness Heart per history of present illness Abdomen no nausea vomiting Musculoskeletal occasional muscle and joint pains Psych no anxiety or depression Neuro without recurrent headache or seizures dizziness as above Endocrine no heat or cold intolerance Objective Vital Signs and I&Os Vital Signs Date Time Temp Pulse Resp B/P B/P Pulse O2 O2 Flow FiO2 Mean Ox Delivery Rate 03/28 0943 80 126/74 03/28 0800 Nasal 2.0L Cannula 03/28 0739 97.8 68 20 92/60 93 Nasal Cannula 03/28 0400 Nasal 2.0L Cannula 03/28 0000 Nasal 2.0L Cannula 03/27 2016 92 130/64 03/27 1628 Nasal 2.0L Cannula 03/27 1518 99.0 92 03/27 1502 99.0 03/27 1435 100.6 106 20 146/76 93 Nasal 2.0L Cannula 03/27 1403 100.6 Intake & Output 03/28 1600 03/28 0800 03/28 0000 03/27 1600 03/27 0800 03/27 0000 Intake Total 100 465 840 320 Output Total 0 300 Balance 100 165 840 320 Intake, IV 0 195 720 300 Intake, Oral 100 270 120 20 Number 0 Bowel Movements Output, Urine 0 300 Patient 175 lb Weight Weight Reported by Patient Measurement Method Physical Exam: Patient is a well-developed well-nourished female appearing in no acute distress HEENT is unremarkable Neck is supple there is no JVD Lungs few scattered rhonchi bilaterally Heart irregular rhythm S1 and S2 are normal no murmurs gallops or rubs Abdomen bowel sounds positive Extremities 3+ edema up to her thighs Current Medications: Current Medications Sig/Jesusita Start time Last Medication Dose Route Stop Time Status Admin Acetaminophen 1,000 MG Q6P PRN 03/27 1630 AC N/A 1 UNIT IV Acetaminophen 650 MG Q6P PRN 03/27 0200 AC 03/28 PO 0646 Digoxin 0.125 MG TuThSa@1700 03/28 1700 AC PO Diltiazem HCl 120 MG DAILY 03/28 1000 AC PO Diltiazem HCl 25 MG .STK-MED ONE 03/27 1625 DC IV 03/27 1626 Diltiazem HCl 125 MG Q8H 03/26 2345 DC 03/28 Dextrose/Water 100 ML IV 0444 Furosemide 20 MG DAILY 03/28 1000 AC PO Gabapentin 300 MG QPM 03/27 2200 AC 03/27 PO 2017 Ibuprofen 600 MG Q6P PRN 03/27 0200 DC PO Levothyroxine Sodium 0.05 MG DAILY AC 03/27 0700 AC 03/28 PO 0647 Meclizine HCl 12.5 MG TID 03/28 1000 AC PO Methotrexate 2.5 MG Tu 03/28 1000 AC PO Metoprolol Tartrate 100 MG BID 03/27 2200 AC 03/27 PO 2016 Morphine Sulfate 2 MG Q4P PRN 03/27 0200 DC IV Omeprazole 40 MG DAILY AC 03/27 0700 AC 03/28 PO 0647 Ondansetron HCl 4 MG ONCE ONE 03/27 2014 DC 03/27 PO 03/27 Oseltamivir Phosphate 75 MG BID 03/27 0245 AC 03/27 PO 03/31 024 2017 Potassium Chloride 40 MEQ ONCE ONE 03/27 1130 DC 03/27 PO 03/27 1131 1128 Prednisone 5 MG DAILY 03/27 1000 AC 03/27 PO 1123 Sodium Chloride 1,000 ML Q13H 03/27 0215 DC 03/27 IV 03/27 1514 0300 Tramadol HCl 50 MG QPM 03/27 2199 AC 03/27 PO 2017 Warfarin Sodium 5 MG COUMADIN 1700 ONE 03/27 1700 DC 03/27 PO 03/27 1701 1629 Results Last 48 Hrs of Labs/Mics: Laboratory Tests 03/28/17 0850: Anion Gap 12, Estimated GFR 47 L, BUN/Creatinine Ratio 19.1, Magnesium 1.6, PT 13.6 H, INR 1.30 H 03/27/17 0736: Lactic Acid 2.7 H 03/27/17 0615: Anion Gap 16, Estimated GFR > 60, BUN/Creatinine Ratio 18.8, Magnesium 1.3 L, Troponin I 0.05 03/27/17 0615: Sodium Cancelled, Potassium Cancelled, Chloride Cancelled, Carbon Dioxide Cancelled, Anion Gap Cancelled, BUN Cancelled, Creatinine Cancelled, BUN/ Creatinine Ratio Cancelled, PT 19.2 H, INR 1.84 H, CBC w Diff MAN DIFF ORDERED , RBC 4.09 L, MCV 97.5, MCH 33.2 H, RDW 14.8 H, MPV 8.5, Gran % 88.0 H, Lymphocytes % 4.4 L, Monocytes % 7.3, Eosinophils % 0.3, Basophils % 0, Absolute Granulocytes 11.1 H, Absolute Lymphocytes 0.6 L, Absolute Monocytes 0.9 H, Absolute Eosinophils 0, Absolute Basophils 0, Platelet Estimate VERIFIED BY SMEAR, Polychromasia 1+, Anisocytosis 1+, Stomatocytes 1+, PUBS MCHC 34.0 03/27/17 0515: Troponin I 0.04 03/26/17 2247: Urine Color YEL, Urine Clarity CLEAR, Urine pH 6.0, Ur Specific [place] 1.020, Urine Protein NEG, Urine Ketones NEG, Urine Nitrite NEG, Urine Bilirubin NEG, Urine Urobilinogen 0.2, Ur Leukocyte Esterase NEG, Ur Microscopic SEDIMENT EXAMINED, Urine RBC RARE, Urine Bacteria RARE H, Urine Hemoglobin SMALL H, Urine Glucose NEG 03/26/17 2131: Anion Gap 15, Estimated GFR > 60, BUN/Creatinine Ratio 21.3, Glucose 125 H, Calcium 9.5, Total Bilirubin 0.8, Direct Bilirubin 0.3, AST 28, ALT 37, Alkaline Phosphatase 74, Troponin I 0.02, Total Protein 6.8, Albumin 4.6, Amylase 78, Lipase 82, TSH 0.763, Free T4 1.19, PT 19.7 H, INR 1.89 H, CBC w Diff MAN DIFF ORDERED, RBC 4.42, MCV 98.1, MCH 32.4 H, RDW 14.8 H, MPV 8.1, Gran % 91.0 H, Lymphocytes % 4.5 L, Monocytes % 3.8, Eosinophils % 0.6, Basophils % 0.1, Absolute Granulocytes 11.8 H, Segmented Neutrophils 90 H, Band Neutrophils 4, Absolute Lymphocytes 0.6 L, Lymphocytes 3 L, Monocytes 2, Absolute Monocytes 0.5, Eosinophils 1, Absolute Eosinophils 0.1, Absolute Basophils 0, Nucleated RBCs 1 H, Platelet Estimate ADEQUATE, Anisocytosis 1+, Macrocytic Cells 1+, Stomatocytes 1+, PUBS MCHC 33.0, Virus Culture Pending, Digoxin 1.0 Microbiology 03/27 1011 NASOPHARYN: Influenza Virus A & B Rapid Smear - COMP 03/26 2130 REMINGTON: Influenza Virus A & B Rapid Smear - COMP Telemetry personally reviewed atrial fibrillation with paced beats Assessment/Plan Assessment/Plan 1. Fever with likely viral bronchitis with concern for influenza despite negative swabs 2. Persistent atrial fibrillation on Coumadin 3. Tachycardia 4. history of heart failure with preserved ejection fraction; compensated 5. PPM in situ 6. history of dementia 7. History of prior CVA 8. hypertension 9. myalgias/knee pain Recommendations 1. Echocardiogram is pending 2. Continue Coumadin for stroke prevention monitoring INR closely 3. Echocardiogram is pending 4. Patient has significant amount of edema and therefore would increase Lasix to 40 mg daily monitoring renal function Continue telemetry? Yes
--- NOTE | 2017-03-28 14:10 | Discharge Summary ---
Visit Information Visit Dates Admission Date: 03/26/17 Discharge Date: 03/30/17 Hospital Course Course Attending Physician: Estela Nunez MD Primary Care Physician: Vangie PABON,[facility] Course: 89 yo F with pmh of HFpEF, NOCAD, PAF on Coumadin, PPM, hypothyroidism, CVA, neuropathy, diverticulosis, was admitted with complaints of fever, nausea, cough , and was found to have atrial fibrillation with rapid ventricular response. She was admitted in the telemetry unit for further monitoring of her heart rate/ rhythm. # A fib with RVR: She was initially given IV Cardizem drip, and afterwards was controlled and was tapered and switched to by mouth Cardizem CD 120 mg daily, metoprolol 100 mg twice a day and digoxin every other day. # Flulike symptoms: She was tested for influenza which turned negative, but persistently had flulike symptoms, and we started her on Tamiflu. She is to complete her seven-day course of Tamiflu and has been prescribed accordingly. #Subtherapeutic INR: Of note, her target INR of 2-3 required dosing of Coumadin, she was ordered 5 mg at the day of discharge (INR 2.06). She needs to get a repeat INR check in 3-4 days time and follow-up with her PCP or learning and development analyst regarding dose adjustment. Allergies: Coded Allergies: ciprofloxacin (From CIPRO) (UNKNOWN 02/21/16) clarithromycin (From BIAXIN) (UNKNOWN - POSSIBLY NAUSEA PER PT DAUGHTER 02/21/16 ) duloxetine (From CYMBALTA) (UNKNOWN 02/21/16) metronidazole (From FLAGYL) (PER PT DAUGHTER - NEUROPATHY 02/21/16) pregabalin (From LYRICA) (UNKNOWN 02/21/16) Significant Procedures: Echo done on 03/28/2017: FINDINGS Left Ventricle Normal global left ventricular size, wall thickness, systolic function with no obvious regional wall motion abnormalities. Normal left ventricular ejection fraction estimated at 60-65%. Right Ventricle Normal right ventricular size and function. Catheter/pacemaker wire in the right ventricular cavity. Right Atrium Normal right atrial size. Left Atrium Normal left atrial size. Mitral Valve Moderate mitral annular calcification. Mild mitral regurgitation. Aortic Valve Diffuse thickening (sclerosis) of the aortic valve cusps without reduced excursion. Tricuspid Valve Tricuspid valve is normal in structure and function. Moderate tricuspid regurgitation. Right ventricular systolic pressure estimated to be elevated at 44 mmHg. Pulmonic Valve Pulmonic valve not well visualized, grossly normal. Pericardium No pericardial effusion. Great Vessels Normal size aortic root. CONCLUSIONS Normal left and right ventricular systolic function. Moderate Tricuspid regurgitation with moderate Pulmonary hypertension. Dami Calderon M.D. (Electronically Signed) Final Date: 28 March 2017 20:09 MEASUREMENTS (Male / Female) Normal Values 2D ECHO LV Diastolic Diameter PLAX 4.3 cm 4.2 - 5.9 / 3.9 - 5.3 cm LV Systolic Diameter PLAX 1.8 cm 2.1 - 4.0 cm LV Fractional Shortening PLAX 58.1 % 25 - 46 % LV Ejection Fraction 2D Teich 88.3 % IVS Diastolic Thickness 0.9 cm LVPW Diastolic Thickness 0.9 cm LV Relative Wall Thickness 0.4 LVOT Diameter 2.0 cm Aortic Root Diameter 3.3 cm LA Systolic Diameter LX 3.3 cm 3.0 - 4.0 / 2.7 - 3.8 cm Ascending Aorta Diameter 3.4 cm DOPPLER AV Peak Velocity 179.0 cm/s AV Peak Gradient 12.8 mmHg AV Mean Velocity 108.0 cm/s AV Mean Gradient 6.0 mmHg AV Velocity Time Integral 32.8 cm LVOT Peak Velocity 101.0 cm/s LVOT Peak Gradient 4.1 mmHg LVOT Mean Velocity 67.2 cm/s LVOT Mean Gradient 2.0 mmHg LVOT Velocity Time Integral 20.2 cm LVOT Stroke Volume 63.5 cm AV Area Cont Eq vti 1.9 cm AV Area Cont Eq pk 1.8 cm MV Peak Velocity 89.6 cm/s MV Peak Gradient 3.2 mmHg MV Mean Velocity 42.8 cm/s MV Mean Gradient 1.0 mmHg Mitral E Point Velocity 86.4 cm/s Mitral A Point Velocity 21.7 cm/s Mitral E to A Ratio 4.0 MV PHT Velocity 95.0 cm/s MV Deceleration [place] 694.0 cm/s MV Pressure Half Time 41.1 ms MV Area PHT 5.4 cm MV Deceleration Time 151.0 ms TR Peak Velocity 312.0 cm/s TR Peak Gradient 38.9 mmHg Right Atrial Pressure 5.0 mmHg Pulmonary Artery Systolic Pressu 43.9 mmHg Right Ventricular Systolic Press 43.9 mmHg PV Peak Velocity 68.9 cm/s PV Peak Gradient 1.9 mmHg PV Mean Velocity 46.9 cm/s PV Mean Gradient 1.0 mmHg PV Velocity Time Integral 13.8 cm LV E' Lateral Velocity 9.0 cm/s Mitral E to LV E' Lateral Ratio 9.6 LV E' Septal Velocity 5.8 cm/s Mitral E to LV E' Septal Ratio 15.0 DICTATED BY: Dami Calderon MD DATE/TIME DICTATED:03/28/172009 ATTENDANT SALES:KB DATE/TIME TRANSCRIBED:03/28/172009 Disposition Summary Disposition Principal Diagnosis: Presumed influenza infection. Atrial fibrillation with rapid ventricular response. Additional Diagnosis: Dementia. Discharge Disposition: home health services Discharge Instructions General Discharge Information Code Status: Full Code Patient's Diet: Heart healthy diet Patient's Activity: As tolerated Follow-Up Instructions/Appts: Please take your medications as prescribed. PLEASE CHECK YOUR INR (BLOOD TEST) ON MONDAY (04/03/17) AND COPY THE RESULTS TO YOUR PCP/DRIVER SUPERVISOR to adjust your Coumadin dose. Please follow up with learning and development analyst in 1-2 weeks after discharge. Please follow up with your PCP within 2 weeks of discharge. Please return to emergency if symptoms worsen, or if you experience chest pain, shortness of breath, palpitations, dizziness, chest discomfort/heaviness. Medications at Discharge Discharge Medications: Stop taking the following medications: Warfarin Sodium (Jantoven) 2.5 MG TABLET ORAL Every other day Continue taking these medications: Levothyroxine Sodium (Levothyroxine Sodium) 50 MCG TABLET 1 Tablet ORAL DAILY Qty = 90 Comments: Last Taken: 03/30/17 Time: 7AM Folic Acid (Folic Acid) 1 MG TABLET 1 Tablet ORAL DAILY Qty = 30 Comments: Last Taken: 03/30/17 Time: 9AM Prednisone (Prednisone) 5 MG TABLET 1 Tablet ORAL DAILY Qty = 30 Comments: Last Taken: 03/30/17 Time: 9AM Metoprolol Tartrate (Metoprolol Tartrate) 100 MG TABLET 1 Tablet ORAL TWICE DAILY Qty = 60 Comments: Last Taken: 03/30/17 Time: 9AM Methotrexate (Methotrexate) 2.5 MG TABLET 3 Tablet ORAL EVERY MONDAY Qty = 24 Comments: Last Taken: 03/28/17 Time: 12PM Omeprazole (Omeprazole) 40 MG CAPSULE.DR 1 Capsule ORAL DAILY as needed for GI Comments: Last Taken: 03/30/17 Time: 7AM Diltiazem HCl (Diltiazem 24HR ER) 120 MG CAP.ER.24H 1 Capsule ORAL Every night Qty = 30 Comments: Last Taken: 03/30/17 Time: 9AM Tramadol HCl (Ultram) 50 MG TABLET 1 Tablet ORAL Every night Comments: Last Taken: 03/29/17 Time: 9PM Gabapentin (Gabapentin) 300 MG CAPSULE 1 Capsule ORAL Every night Comments: Last Taken: 03/29/17 Time: 9AM Bioflav,Lemon/Vit Bcomp,C (Lipo-Flavonoid Plus Caplet) (Unknown Strength) TABLET 1 Tablet ORAL DAILY Comments: NOT GIVEN IN HOSPITAL Calcium Citrate/Vitamin D3 (Citracal + D Maximum Caplet) (Unknown Strength) TABLET 2 Tablet ORAL DAILY Comments: NOT GIVEN IN HOSPITAL Cholecalciferol (Vitamin D3) (Vitamin D3) 1,000 UNIT CAPSULE 1 Capsule ORAL DAILY Comments: NOT GIVEN IN HOSPITAL Cyanocobalamin (Vitamin B-12) 1,000 MCG TABLET 1 Tablet ORAL DAILY Comments: NOT GIVEN IN HOSPITAL Digoxin (Digoxin) 125 MCG TABLET 1 Tablet ORAL Every other day Qty = 30 Comments: Last Taken: 03/30/17 Time: 9AM Furosemide (Lasix) 20 MG TABLET 1 Tablet ORAL DAILY Qty = 30 Comments: Last Taken: 03/30/17 Time: 9AM PT GIVEN 40MG Start taking the following new medications: Oseltamivir Phosphate (Tamiflu) 75 MG CAPSULE 75 Milligram ORAL TWICE DAILY Qty = 7 No Refills Instructions: . Comments: Last Taken: 03/30/17 Time: 9AM The following medications have been changed: Old: Warfarin Sodium (Coumadin) 5 MG TABLET 1 Tablet ORAL Every other day New: Warfarin Sodium (Coumadin) 5 MG TABLET 1 Tablet ORAL DAILY Qty = 60 Comments: NOT GIVEN IN HOSPITAL. PT RECEIVED 7.5MG 03/29/17 @ 5PM Copies To: Celi PABON,Ajay Vences MD,Mike Attending Review Statement Documenting Attending: Estela Nunez MD Other Findings: Discharged in stable medical condition.
--- NOTE | 2017-03-28 14:14 | Patient Discharge Instructions ---
Discharge Instructions General Discharge Information You were seen/treated for: Atrial fibrillation with rapid ventricular response Special Instructions: Please take your medications as prescribed. PLEASE CHECK YOUR INR (BLOOD TEST) ON MONDAY (04/03/17) AND COPY THE RESULTS TO YOUR PCP/STAPLER HAND to adjust your Coumadin dose. Please follow up with rn hedis in 1-2 weeks after discharge. Please follow up with your PCP within 2 weeks of discharge. Please return to emergency if symptoms worsen, or if you experience chest pain, shortness of breath, palpitations, dizziness, chest discomfort/heaviness. Diet Continue normal diet: No Recommended Diet: Heart Healthy Activity Full Activity/No Limits: No Activity Self Limited: Yes Acute Coronary Syndrome Inclusion Criteria At DC or during hospital stay patient has or had the following: ACS DIAGNOSIS No Discharge Core Measures Meds if any: Prescribed or Continued at Discharge Meds if any: NOT Prescribed or Continued at Discharge Congestive Heart Failure Inclusion Criteria At DC or during hospital stay patient has or had the following: CHF DIAGNOSIS No Discharge Core Measures Meds if any: Prescribed or Continued at Discharge Meds if any: NOT Prescribed or Continued at Discharge Cerebrovascular accident Inclusion Criteria At DC or during hospital stay patient has or had the following: CVA/TIA Diagnosis No Discharge Core Measures Meds if any: Prescribed or Continued at Discharge Meds if any: NOT Prescribed or Continued at Discharge Venous thromboembolism Inclusion Criteria VTE Diagnosis No VTE Type NONE VTE Confirmed by (Test) NONE Discharge Core Measures - Per Current guidelines, there needs to be overlap - treatment for the first 5 days of Warfarin therapy. - If discharged on Warfarin prior to 5 days of - overlap therapy, the patient will need to be - assessed for post discharge needs including - *Post discharge parental anticoagulation - *Warfarin and/or parental anticoagulation education - *Follow up date to check INR post discharge At least 5 days overlap therapy as Inpatient No Meds if any: Prescribed or Continued at Discharge Note: Overlap Therapy is Warfarin and Anticoagulant Meds if any: NOT Prescribed or Continued at Discharge
[2017-03-28] MEDS ORDERED: TAMIFLU75 M1 PO (14:17)
[2017-03-28 14:28] VITALS: BP 126/78
--- NOTE | 2017-03-28 20:10 | ECHOCARDIOGRAM REPORT ---
JENELLE CHRISTIAN Age: 89 : 1925 Gender: F Exam Date: 03/28/2017 09:18 Exam Location: [address] Ht (in): 66 Wt (lb): 175 BSA: 1.94 BP: 92 / 60 Ordering Physician: Laci Ramirez MD Referring Physician: Laci Ramirez MD Technologist: Jarrell Lees [facility] Room Number: 181-1 Indications: AFIB/FLUTTER Rhythm: Sinus Technical Quality: Poor FINDINGS Left Ventricle Normal global left ventricular size, wall thickness, systolic function with no obvious regional wall motion abnormalities. Normal left ventricular ejection fraction estimated at 60-65%. Right Ventricle Normal right ventricular size and function. Catheter/pacemaker wire in the right ventricular cavity. Right Atrium Normal right atrial size. Left Atrium Normal left atrial size. Mitral Valve Moderate mitral annular calcification. Mild mitral regurgitation. Aortic Valve Diffuse thickening (sclerosis) of the aortic valve cusps without reduced excursion. Tricuspid Valve Tricuspid valve is normal in structure and function. Moderate tricuspid regurgitation. Right ventricular systolic pressure estimated to be elevated at 44 mmHg. Pulmonic Valve Pulmonic valve not well visualized, grossly normal. Pericardium No pericardial effusion. Great Vessels Normal size aortic root. CONCLUSIONS Normal left and right ventricular systolic function. Moderate Tricuspid regurgitation with moderate Pulmonary hypertension. Dami Calderon M.D. (Electronically Signed) Final Date: 28 March 2017 20:09 MEASUREMENTS (Male / Female) Normal Values 2D ECHO LV Diastolic Diameter PLAX 4.3 cm 4.2 - 5.9 / 3.9 - 5.3 cm LV Systolic Diameter PLAX 1.8 cm 2.1 - 4.0 cm LV Fractional Shortening PLAX 58.1 % 25 - 46 % LV Ejection Fraction 2D Teich 88.3 % IVS Diastolic Thickness 0.9 cm LVPW Diastolic Thickness 0.9 cm LV Relative Wall Thickness 0.4 LVOT Diameter 2.0 cm Aortic Root Diameter 3.3 cm LA Systolic Diameter LX 3.3 cm 3.0 - 4.0 / 2.7 - 3.8 cm Ascending Aorta Diameter 3.4 cm DOPPLER AV Peak Velocity 179.0 cm/s AV Peak Gradient 12.8 mmHg AV Mean Velocity 108.0 cm/s AV Mean Gradient 6.0 mmHg AV Velocity Time Integral 32.8 cm LVOT Peak Velocity 101.0 cm/s LVOT Peak Gradient 4.1 mmHg LVOT Mean Velocity 67.2 cm/s LVOT Mean Gradient 2.0 mmHg LVOT Velocity Time Integral 20.2 cm LVOT Stroke Volume 63.5 cm AV Area Cont Eq vti 1.9 cm AV Area Cont Eq pk 1.8 cm MV Peak Velocity 89.6 cm/s MV Peak Gradient 3.2 mmHg MV Mean Velocity 42.8 cm/s MV Mean Gradient 1.0 mmHg Mitral E Point Velocity 86.4 cm/s Mitral A Point Velocity 21.7 cm/s Mitral E to A Ratio 4.0 MV PHT Velocity 95.0 cm/s MV Deceleration [place] 694.0 cm/s MV Pressure Half Time 41.1 ms MV Area PHT 5.4 cm MV Deceleration Time 151.0 ms TR Peak Velocity 312.0 cm/s TR Peak Gradient 38.9 mmHg Right Atrial Pressure 5.0 mmHg Pulmonary Artery Systolic Pressu 43.9 mmHg Right Ventricular Systolic Press 43.9 mmHg PV Peak Velocity 68.9 cm/s PV Peak Gradient 1.9 mmHg PV Mean Velocity 46.9 cm/s PV Mean Gradient 1.0 mmHg PV Velocity Time Integral 13.8 cm LV E' Lateral Velocity 9.0 cm/s Mitral E to LV E' Lateral Ratio 9.6 LV E' Septal Velocity 5.8 cm/s Mitral E to LV E' Septal Ratio 15.0
[2017-03-28 22:27] VITALS: BP 136/68
[2017-03-29 07:05] VITALS: BP 120/76
--- NOTE | 2017-03-29 07:26 | PN- Housestaff ---
James PABON,Laci 03/29/17 0726: Subjective Follow-up For: Atrial fibrillation; Flulike symptoms Complaints: cough Tele-Events Since Last Visit: Atrial fibrillation, heart rate in 70s Subjective: I followed up and examined the patient today. The patient still has some nonproductive cough, but says that something sticks up her throat. Her vital signs have been stable, including her heart rate. No nursing issues reported by the. Review of Systems Constitutional: Reports: see HPI. Respiratory: Reports: cough. Objective Last 24 Hrs of Vital Signs/I&O Vital Signs Date Time Temp Pulse Resp B/P B/P Pulse O2 O2 Flow FiO2 Mean Ox Delivery Rate 03/29 1424 98.9 76 23 110/68 94 03/29 1319 Nasal 2.0L Cannula 03/29 1311 Nasal 2.0L Cannula 03/29 1217 Room Air Room Air 03/29 0931 93 120/76 03/29 0705 97.0 67 18 120/76 92 Room Air 03/29 0000 Room Air 03/28 2227 98.0 86 20 136/68 96 Room Air 03/28 2047 86 136/68 03/28 1633 78 126/72 Intake & Output 03/29 1600 03/29 0800 03/29 0000 Intake Total 80 360 Output Total 800 950 Balance -800 80 -590 Intake, Oral 80 360 Output, Urine 800 950 Patient 77.734 kg 77.734 kg Weight Weight Chair scale Measurement Method Physical Exam General Appearance: Alert, Oriented X3, Cooperative, No Acute Distress, overweight Other Physical Findings: Skin: No Rashes, No Breakdown HEENT: Atraumatic, PERRLA, EOMI, Mucous Membr. moist/pink Lymphatic: Cervical nl Cardiovascular: Regular Rate, Normal S1, Normal S2, irregular pulse Lungs: conducted sound heard b/l, Normal Air Movement Abdomen: Normal Bowel Sounds, Soft, No Tenderness Neurological: grossly intact Extremities: trace edema b/l (chronic) Vascular: Normal Pulses Current Medications: Current Medications Sig/Jesusita Start time Last Medication Dose Route Stop Time Status Admin Acetaminophen 650 MG .STK-MED ONE 03/28 1850 DC PO 03/28 185 Acetaminophen 1,000 MG Q6P PRN 03/27 1630 AC N/A 1 UNIT IV Acetaminophen 650 MG Q6P PRN 03/27 0200 AC 03/28 PO 1851 Digoxin 0.125 MG TuTElkea@1700 03/28 1700 AC 03/28 PO 1633 Diltiazem HCl 120 MG DAILY 03/28 1000 AC 03/28 PO 1025 Folic Acid 1 MG DAILY 03/28 1417 AC 03/28 PO 1631 Furosemide 40 MG DAILY 03/29 1000 AC PO Furosemide 20 MG 1415 03/28 1415 DC 03/28 PO 03/28 1416 1631 Furosemide 20 MG DAILY 03/28 1000 DC 03/28 PO 1009 Gabapentin 300 MG QPM 03/27 2200 AC 03/28 PO 2047 Levothyroxine Sodium 0.05 MG DAILY AC 03/27 0700 AC 03/29 PO 0628 Meclizine HCl 12.5 MG TID 03/28 1000 AC 03/28 PO 2052 Methotrexate 7.5 MG Tu 03/28 1027 AC 03/28 PO 1223 Methotrexate 2.5 MG Tu 03/28 1000 CAN PO Metoprolol Tartrate 100 MG BID 03/27 2200 AC 03/28 PO 2047 Omeprazole 40 MG DAILY AC 03/27 0700 AC 03/29 PO 0629 Oseltamivir Phosphate 75 MG BID 03/27 0245 AC 03/28 PO 03/31 0244 2048 Prednisone 5 MG DAILY 03/27 1000 AC 03/28 PO 1011 Tramadol HCl 50 MG QPM 03/27 2200 AC 03/28 PO 2047 Warfarin Sodium 7.5 MG COUMADIN 1700 ONE 03/28 1715 DC 03/28 PO 03/28 1716 2047 Last 24 Hrs of Lab/Jamar Results Last 24 Hrs of Labs/Mics: Laboratory Tests 03/29/17 0632: Sodium Pending, Potassium Pending, Chloride Pending, Carbon Dioxide Pending, Anion Gap Pending, BUN Pending, Creatinine Pending, BUN/Creatinine Ratio Pending , PT Pending, INR Pending 03/28/17 0850: Anion Gap 12, Estimated GFR 47 L, BUN/Creatinine Ratio 19.1, Magnesium 1.6, PT 13.6 H, INR 1.30 H Assessment/Plan Assessment: 89 yo F with pmh of HFpEF, NOCAD, PAF on Coumadin, PPM, hypothyroidism, CVA, neuropathy, diverticulosis, was admitted with complaints of fever, nausea, cough , and was found to have atrial fibrillation with rapid ventricular response. She is currently admitted in the telemetry unit for further monitoring of her heart rate. She is on her home meds currently. She also has some dry cough, but wants to produce sputum. * Continue monitoring in telemetry, for rate and rhythm * Cardiology recommendations appreciated * Continue PO Cardizem CD 120 mg daily, metoprolol 100 mg BID, digoxin EOD. * Continuing Tamiflu for total 7 days. * Coumadin dosing for INR 2-3, gave 7.5 today #Discharge disposition: Patient was not cleared for home discharge by the physical therapist given her weakness. She does not want to go to any STR if possible, which itself might not be easy to find for her, as she is currently being treated with Tamiflu. She will be discharged either to STR with physical therapy, or home with physical therapy, whichever comes first. She is otherwise medically improving greatly. #Diet: Heart healthy diet #DVT ppx: Coumadin #Code status: Full code Problem List: 1. Atrial fibrillation Pain Ratin Pain Location: - Pain Goal: Pain 4 or less Pain Plan: prn Tomorrow's Labs & Rationales: INR to dose coumadin Estela Nunez MD 03/29/17 1233: Attending MD Review Statement Attending Statement Attending MD Statement: examined this patient, discuss w/resident/PA/STAFF NUCLEAR MEDICINE TECHNOLOGIST, agreed w/resident/PA/STAFF NUCLEAR MEDICINE TECHNOLOGIST, discussed with family, reviewed EMR data (avail), discussed with nursing, discussed with case mgmt, amended to note Attending Assessment/Plan: Patient seen and examined. Resting comfortably and is in any acute distress. Denies any complaints of dizziness today. Denies chest pain or shortness of breath. Complains of some lethargy. She remains afebrile and hemodynamically stable. On examination she is not in any distress. Heart sounds are irregular. Lungs are clear bilaterally. Abdomen is soft and nontender. She has trace lower extremity edema. Recommendations: -Patient is medically stable to be discharged today however physical therapy service finds her unsafe to be discharged home at this point in time. Apparently patient tends to have some retropulsion when ambulating. She does have 24 hour caregiver at home however this daughter is currently injured and unable to adequately care for the patient and her current condition per the physical therapy service. She will be reevaluated tomorrow to determine if she has improved enough to be discharged home safely. -Blood cultures are negative. No evidence of a bacterial infection at present. -Complete the course of Tamiflu empirically started for influenza. -High INR remains subtherapeutic. She is on Coumadin 5 mg alternating with 2.5 mg at home. She did receive some 0.5 mg of Coumadin yesterday. Recommend repeat in a dose of 7.5 mg today. We will decide on her home Coumadin regimen at the time of discharge based on the INR at that time. -No need for further telemetry monitoring.
[2017-03-29 08:26] LABS: PT 14.2 SEC (9.4-12.5)
[2017-03-29] MEDS ORDERED: COUMADIN5 M2 PO (09:36)
--- NOTE | 2017-03-29 12:27 | PN- Cardiology ---
Subjective Subjective: Resting comfortably but still with a cough. No chest pain. Objective Vital Signs and I&Os Vital Signs Date Time Temp Pulse Resp B/P B/P Pulse O2 O2 Flow FiO2 Mean Ox Delivery Rate 03/29 1217 Room Air Room Air 03/29 0931 93 120/76 03/29 0705 97.0 67 18 120/76 92 Room Air 03/29 0000 Room Air 03/28 2227 98.0 86 20 136/68 96 Room Air 03/28 2047 86 136/68 03/28 1633 78 126/72 03/28 1428 97.5 72 18 126/78 96 Room Air Intake & Output 03/29 1600 03/29 0800 03/29 0000 03/28 1600 03/28 0800 03/28 0000 Intake Total 80 360 864 100 465 Output Total 950 200 0 300 Balance 80 -590 664 100 165 Intake, IV 0 195 Intake, Oral 80 360 864 100 270 Number 1 0 Bowel Movements Output, Urine 950 200 0 300 Patient 171 lb Weight Weight Chair scale Measurement Method Physical Exam: General: no apparent distress. Eyes: No obvious scleral icterus. HEENT: No jugular venous distention or abnormal jugular venous pulsations. Cardiovascular: Normal intensity S1/S2. Irregular , pacemaker noted Respiratory: No rales or rhonchi Abdomen: Soft, nontender with no guarding or rebound tenderness. Musculoskeletal: No clubbing or cyanosis noted; trace lower extremity edema Skin: Warm Neurologic: No gross focal deficits noted. Lymph: No gross lymphadenopathy. Current Medications: Current Medications Sig/Jesusita Start time Last Medication Dose Route Stop Time Status Admin Acetaminophen 650 MG .STK-MED ONE 03/28 1850 DC PO 03/28 1851 Acetaminophen 1,000 MG Q6P PRN 03/27 1630 AC N/A 1 UNIT IV Acetaminophen 650 MG Q6P PRN 03/27 0200 AC 03/28 PO 1851 Digoxin 0.125 MG TuThSa@1700 03/28 1700 AC 03/28 PO 1633 Diltiazem HCl 120 MG DAILY 03/28 1000 AC 03/29 PO 0931 Folic Acid 1 MG DAILY 03/28 1417 AC 03/29 PO 0931 Furosemide 40 MG DAILY 03/29 1000 AC 03/29 PO 0931 Furosemide 20 MG 1415 03/28 1415 DC 03/28 PO 03/28 1416 1631 Furosemide 20 MG DAILY 03/28 1000 DC 03/28 PO 1009 Gabapentin 300 MG QPM 03/27 2200 AC 03/28 PO 2047 Levothyroxine Sodium 0.05 MG DAILY AC 03/27 0700 AC 03/29 PO 0628 Meclizine HCl 12.5 MG TID 03/28 1000 AC 03/29 PO 0931 Methotrexate 7.5 MG Tu 03/28 1027 AC 03/28 PO 1223 Metoprolol Tartrate 100 MG BID 03/27 2200 AC 03/29 PO 0931 Omeprazole 40 MG DAILY AC 03/27 0700 AC 03/29 PO 0629 Oseltamivir Phosphate 75 MG BID 03/27 0245 AC 03/29 PO 03/31 0244 0931 Prednisone 5 MG DAILY 03/27 1000 AC 03/29 PO 0931 Tramadol HCl 50 MG QPM 03/270 AC 03/28 PO 2047 Warfarin Sodium 7.5 MG COUMADIN 1700 ONE 03/29 1700 AC PO 03/29 1701 Warfarin Sodium 7.5 MG COUMADIN 1700 ONE 03/28 1715 DC 03/28 PO 03/28 1716 2047 Results Last 48 Hrs of Labs/Mics: Laboratory Tests 03/29/17 0632: Anion Gap 13, Estimated GFR 52 L, BUN/Creatinine Ratio 23.0, PT 14.2 H, INR 1.36 H 03/28/17 0850: Anion Gap 12, Estimated GFR 47 L, BUN/Creatinine Ratio 19.1, Magnesium 1.6, PT 13.6 H, INR 1.30 H Recent Imaging Studies: Echo: Normal left and right ventricular systolic function. Moderate Tricuspid regurgitation with moderate Pulmonary hypertension. Telemetry tracings were personally reviewed and show atrial fibrillation with some PVCs Assessment/Plan Assessment/Plan 1. Fever with likely viral bronchitis with concern for influenza despite negative swabs 2. Persistent atrial fibrillation on Coumadin 3. Tachycardia 4. history of heart failure with preserved ejection fraction; compensated 5. PPM in situ 6. history of dementia 7. History of prior CVA 8. hypertension 9. myalgias/knee pain Patient remains hemodynamically stable with reasonable heart rate. Echocardiogram as above shows normal biventricular function. Continue on oral Lasix. Dose Coumadin to target INR 2.0-3.0. Ronnie Alatorre MD [facility] Continue telemetry? No
[2017-03-29 14:24] VITALS: BP 110/68
[2017-03-29 22:12] VITALS: BP 140/76
[2017-03-30 07:04] VITALS: BP 114/80
--- NOTE | 2017-03-30 07:43 | PN- Housestaff ---
James PABON,Laci 03/30/17 0743: Subjective Follow-up For: Atrial fibrillation; Flulike symptoms Complaints: no complaints Tele-Events Since Last Visit: Off telemetry Subjective: I followed up and examined the patient today. She was walking around in the hallway with physical therapist, with the help of a rolling walker. She feels much better, cough has decreased, and she does not have any other issues. Vital signs have remained stable overnight, no tachycardia. She walked with rolling walker with some assistance today, PT suggesting home with PT service as discharge disposition. Review of Systems Constitutional: Reports: no symptoms. Objective Last 24 Hrs of Vital Signs/I&O Vital Signs Date Time Temp Pulse Resp B/P B/P Pulse O2 O2 Flow FiO2 Mean Ox Delivery Rate 03/30 0846 75 118/70 03/30 0845 118/70 03/30 0800 Room Air 03/30 0704 98.2 75 16 114/80 94 Room Air 03/30 0000 Room Air 03/29 2212 98.6 82 20 140/76 96 Nasal Cannula 03/29 2108 82 140/76 03/29 1424 98.9 76 23 110/68 94 03/29 1319 Nasal 2.0L Cannula 03/29 1311 Nasal 2.0L Cannula 03/29 1217 Room Air Room Air Intake & Output 03/30 1600 03/30 0800 03/30 0000 Intake Total 120 240 Output Total 300 950 Balance -180 -710 Intake, Oral 120 240 Number 0 0 Bowel Movements Output, Urine 300 950 Patient 80.002 kg Weight Weight Chair scale Measurement Method Physical Exam General Appearance: Alert, Oriented X3, Cooperative, No Acute Distress, overweight Other Physical Findings: Skin: No Rashes, No Breakdown HEENT: Atraumatic, PERRLA, EOMI, Mucous Membr. moist/pink Lymphatic: Cervical nl Cardiovascular: Regular Rate, Normal S1, Normal S2, irregular pulse Lungs: conducted sound heard b/l, Normal Air Movement, better than yesterday Abdomen: Normal Bowel Sounds, Soft, No Tenderness Neurological: grossly intact Extremities: trace edema b/l (chronic) Vascular: Normal Pulses Current Medications: Current Medications Sig/Jesusita Start time Last Medication Dose Route Stop Time Status Admin Acetaminophen 1,000 MG Q6P PRN 03/27 1630 AC N/A 1 UNIT IV Acetaminophen 650 MG Q6P PRN 03/27 0200 AC 03/28 PO 1851 Digoxin 0.125 MG TuThSa@1700 03/28 1700 AC 03/28 PO 1633 Diltiazem HCl 120 MG DAILY 03/28 1000 AC 03/30 PO 0845 Folic Acid 1 MG DAILY 03/28 1417 AC 03/30 PO 0846 Furosemide 40 MG DAILY 03/29 1000 AC 03/30 PO 0846 Gabapentin 300 MG QPM 03/27 2200 AC 03/29 PO 2108 Guaifenesin 600 MG Q12 03/29 1332 AC 03/30 PO 0846 Levothyroxine Sodium 0.05 MG DAILY AC 03/27 0700 AC 03/30 PO 0612 Meclizine HCl 12.5 MG TID 03/28 1000 AC 03/30 PO 0845 Melatonin 5 MG ONCE ONE 03/29 2245 DC 03/29 PO 03/29 224 2247 Methotrexate 7.5 MG Tu 03/28 1027 AC 03/28 PO 1223 Metoprolol Tartrate 100 MG BID 03/27 2200 AC 03/30 PO 0846 Omeprazole 40 MG DAILY AC 03/27 0700 AC 03/30 PO 0612 Oseltamivir Phosphate 75 MG BID 03/27 0245 AC 03/30 PO 03/31 0244 0846 Prednisone 5 MG DAILY 03/27 1000 AC 03/30 PO 0846 Tramadol HCl 50 MG QPM 03/27 2200 AC 03/29 PO 2108 Warfarin Sodium 7.5 MG COUMADIN 1700 ONE 03/29 1700 DC 03/29 PO 03/29 1701 1612 Last 24 Hrs of Lab/Jamar Results Last 24 Hrs of Labs/Mics: Laboratory Tests 03/30/17 0613: PT 21.5 H, INR 2.06 H Assessment/Plan Assessment: 89 yo F with pmh of HFpEF, NOCAD, PAF on Coumadin, PPM, hypothyroidism, CVA, neuropathy, diverticulosis, was admitted with complaints of fever, nausea, cough , and was found to have atrial fibrillation with rapid ventricular response. She is currently admitted in the telemetry unit for further monitoring of her heart rate. She is on her home meds currently. Her cough has improved today. * Cardiology recommendations appreciated * Continue PO Cardizem CD 120 mg daily, metoprolol 100 mg BID, digoxin EOD. * Continuing Tamiflu for total 7 days. * Coumadin dosing for INR 2-3, ordered 5 mg today today. She will have to get a repeat INR check in 3-4 days time, and follow-up with her PCP or district supervisor regarding dose adjustment. #Discharge disposition: Patient cleared for home with PT by the physical therapist given her weakness. #Diet: Heart healthy diet #DVT ppx: Coumadin #Code status: Full code Problem List: 1. Atrial fibrillation 2. Viral syndrome Pain Ratin Pain Location: knees, if any, while walking Pain Goal: Pain 4 or less Pain Plan: prn Tomorrow's Labs & Rationales: -, CHRISTIANE Nunez MD,Estela 03/30/17 1041: Attending MD Review Statement Attending Statement Attending MD Statement: examined this patient, discuss w/resident/PA/INTERNATIONAL LOGISTICS ANALYST, agreed w/resident/PA/INTERNATIONAL LOGISTICS ANALYST, discussed with family, reviewed EMR data (avail), discussed with nursing, discussed with case mgmt, amended to note Attending Assessment/Plan: Patient seen and examined. Son present at the bedside. No issues overnight reported by nursing staff. She was evaluated by the physical therapy service this morning. Per their evaluation patient is doing much better today and is much safer to be discharged home today in the company of her family members. She will be provided visiting nurse services. She has been advised to follow-up with her primary care providers as an outpatient. She is medically stable to be discharged home today.
[2017-03-30 08:17] LABS: PT 21.5 SEC (9.4-12.5)
[2017-03-30 08:45] VITALS: BP 118/70
[2017-03-30 08:46] VITALS: BP 118/70
[2017-03-30] MEDS ORDERED: TAMIFLU75 M1 PO ×2 (08:48→12:55)
== END 2017-03-30 12:44 | disposition home health service (06) | DRG 202 ==
LOC: ERH 21:10 → 1NO 23:13 → ERHI 03-27 00:27 → ERH 03-27 00:27 → ENRESERV 03-27 00:37 → ERHI 03-27 01:44 → 1NO 03-27 01:44 → ENPENDDIS 03-30 08:48 → ENTRNSPT 03-30 12:15 → 1NO 03-30 12:27 → EDTRNSPT 03-30 12:38 → EDTRNSPTSTS 03-30 12:40 → 1NO 03-30 12:44 → CMPTRNSPT 03-30 12:50
PROVIDERS: Pediatrics; Student in an Organized Health Care Education/Training Program
DX: J20.8 Acute bronchitis due to other specified organisms (principal); I48.1 Persistent atrial fibrillation; G62.9 Polyneuropathy, unspecified; I50.32 Chronic diastolic (congestive) heart failure; I11.0 Hypertensive heart disease with heart failure; M06.9 Rheumatoid arthritis, unspecified; J11.1 Influenza due to unidentified influenza virus with other respiratory manifestations; F03.90 Unspecified dementia, unspecified severity, without behavioral disturbance, psychotic disturbance, mood disturbance, and anxiety; Z79.01 Long term (current) use of anticoagulants; Z86.73 Personal history of transient ischemic attack (TIA), and cerebral infarction without residual deficits; E03.9 Hypothyroidism, unspecified; E78.5 Hyperlipidemia, unspecified; Z95.0 Presence of cardiac pacemaker; M79.1 Myalgia; R00.0 Tachycardia, unspecified; K57.90 Diverticulosis of intestine, part unspecified, without perforation or abscess without bleeding; M25.562 Pain in left knee; M25.561 Pain in right knee
CPT/HCPCS: 1NP; 36415; 71046; 73562-LT; 73562-RT; 81001; 82436; 87040; 87070; 87086; 87804; 87804-59; 93005; 93010; 93306; 96374; 96375; 96376; 97110-GO; 97112-GO; 97161-GP; 97530-GO; 99291; J0131; J3490; J7512; J8610